=== PATIENT | female | born 1960 | race Caucasian/White ===

== ENCOUNTER 2019-12-21 16:22 | Outpatient (REF) | payer OTHER, SELFPAY ==
--- NOTE | 2019-12-21 16:27 | MM_ITS ---
EXAMINATION: MM SCREENING DIGITAL BREAST TOMOSYNTHESIS, BILATERAL CLINICAL INFORMATION: Screening. Asymptomatic. The lifetime risk of breast cancer based on the Tyrer-Cuzick Model is 10%. COMPARISON: Mammography: 11/07/2018, 6 08/21/2017 TECHNIQUE: Digital breast tomosynthesis is performed in both the craniocaudal and mediolateral oblique views along with computer-aided detection (CAD). Synthesized 2D images are generated from the tomosynthesis. Additional left MLO view is provided. FINDINGS: There are scattered areas of fibroglandular density (ACR BI-RADS breast composition Category b). There are no significant masses, abnormal calcifications, or other abnormalities. No significant changes from prior studies. Skin contours are smooth. MM/MM tomosynthesis screening BI IMPRESSION: No mammographic evidence of malignancy. ASSESSMENT: BI-RADS 1: Negative RECOMMENDATION: Routine annual mammography screening. This patient's information was entered into a reminder system with a target due date for their next mammogram.
== END 2019-12-21 16:23 | disposition home or self-care (01) ==
LOC: HO.MAMMO 16:22
PROVIDERS: PCP Internal Medicine; Visit Provider Internal Medicine
DX: Z12.31 Encounter for screening mammogram for malignant neoplasm of breast (principal)
CPT/HCPCS: 77063; 77067

== ENCOUNTER 2020-01-18 07:54 | Outpatient (REF) | payer OTHER, SELFPAY ==
[2020-01-18 08:39] LABS: MANUAL DIFF FLAG NO
[2020-01-18 08:43] LABS: Basophils Percent Auto 0.2 % (0-2); Eosinophils Absolute Auto 0.2 X10*3/uL (0.0-0.4); Eosinophils Percent Auto 3.2 % (0-4); Hematocrit 43.9 % (37-47); Hemoglobin 14.6 g/dl (12.0-16.0); Imm Gran Abs Auto 0.01 X10*3/uL (0.00-0.03); Imm Gran Pct Auto 0.2 % (0.0-0.4); Lymphocytes Absolute Auto 1.4 X10*3/uL (1.2-4.9); Lymphocytes Percent Auto 26.7 % (20-40); Mean Corpuscular HGB Conc 33.3 g/dl (31.0-35.0); Mean Corpuscular Volume 90.1 fL (80-98); Mean Platelet Volume 9.8 fL (9.4-12.3); Monocytes Absolute Auto 0.3 X10*3/uL (0.1-1.2); Monocytes Percent Auto 5.3 % (2-11); Neutrophils Absolute Auto 3.4 X10*3/uL (2.0-8.3); Neutrophils Percent Auto 64.4 % (45-73); Platelet Count 308 X10*3/uL (160-400); Red Blood Count 4.87 X10*6/uL (4.20-5.50); Red Cell Distribution Width 12.4 % (11.0-16.0); White Blood Count 5.3 X10*3/uL (4.8-10.8)
[2020-01-18 09:02] LABS: Glucose Urine UA NEG (NEG); Leukocyte Esterase Urine NEG (NEG); Nitrite Urine NEG (NEG); PH 7.5 (5.0-8.0); Specific Gravity - Urine 1.015 (1.005-1.025); Urine Blood NEG (NEG); Urine Ketones NEG (NEG); Urine Protein NEG (NEG-TRACE)
[2020-01-18 09:04] LABS: Appearance Urine HAZY; Color Urine YELLOW
[2020-01-18 09:18] LABS: Alanine Aminotransferase 12 U/L (0-31); Albumin Level 4.4 g/dL (3.5-5.0); Alkaline Phosphatase 78 U/L (39-117); Anion Gap 12 (12-20); Aspartate Amino Transferase 16 U/L (5-31); Bilirubin Total 0.6 mg/dL (0.0-1.0); Blood Urea Nitrogen 13 mg/dL (9-16); Calcium 9.5 mg/dL (8.4-10.2); Carbon Dioxide 29 mmol/L (22-29); Chloride 102 mmol/L (96-108); Cholesterol 240 mg/dL; Estimated Glomerular Filt Rate > 60; Glucose Fasting 85 mg/dL (60-99); HDL Cholesterol 55 mg/dL; LDL Cholesterol Calculated 162 mg/dl; Potassium 4.6 mmol/l (3.3-5.1); Sodium 138 mmol/L (135-145); Triglycerides 115 mg/dL
[2020-01-18 09:39] LABS: Thyroid Stimulating Hormone 1.98 uIU/mL (0.32-4.0)
== END 2020-01-18 07:55 | disposition home or self-care (01) ==
LOC: HO.LAB 07:54
PROVIDERS: PCP Internal Medicine; Visit Provider Internal Medicine
DX: E03.9 Hypothyroidism, unspecified (principal); Z00.00 Encounter for general adult medical examination without abnormal findings; R31.1 Benign essential microscopic hematuria
CPT/HCPCS: 36415; 80053; 80061; 81003; 84443; 85025

== ENCOUNTER 2020-07-24 10:22 | Outpatient (REF) | payer OTHER, SELFPAY | END 2020-07-24 10:23 | disposition home or self-care (01) | LOC: HO.LNP 10:22 | PROVIDERS: Visit Provider Internal Medicine | DX: E03.9 Hypothyroidism, unspecified (principal) | CPT/HCPCS: 84443 ==

== ENCOUNTER 2020-12-30 09:02 | Outpatient (REF) | payer OTHER, SELFPAY ==
--- NOTE | ~2020-12-30 | MM_ITS ---
EXAMINATION: MM SCREENING DIGITAL BREAST TOMOSYNTHESIS, BILATERAL CLINICAL INFORMATION: Screening. Asymptomatic. The lifetime risk of breast cancer based on the Tyrer-Cuzick Model is 10%. COMPARISON: Mammography: 12/21/2019, 11/07/2018, 08/21/2017 TECHNIQUE: Digital breast tomosynthesis is performed in both the craniocaudal and mediolateral oblique views along with computer-aided detection (CAD). Synthesized 2D images are generated from the tomosynthesis. Additional left MLO view is provided. FINDINGS: There are scattered areas of fibroglandular density (ACR BI-RADS breast composition Category b). There are no significant masses, abnormal calcifications, or other abnormalities. MM/MM tomosynthesis screening BI IMPRESSION: No mammographic evidence of malignancy. ASSESSMENT: BI-RADS 1: Negative RECOMMENDATION: Routine annual mammography screening. This patient's information was entered into a reminder system with a target due date for their next mammogram.
== END 2020-12-30 09:03 | disposition home or self-care (01) ==
LOC: HO.MAMMO 09:02
PROVIDERS: PCP Internal Medicine; Visit Provider Internal Medicine
DX: Z12.31 Encounter for screening mammogram for malignant neoplasm of breast (principal)
CPT/HCPCS: 77063; 77067

== ENCOUNTER 2021-01-29 10:35 | Outpatient (REF) | payer OTHER, SELFPAY ==
[2021-01-29 10:38] LABS: MANUAL DIFF FLAG NO
[2021-01-29 11:17] LABS: Basophils Percent Auto 0.2 % (0-2); Eosinophils Absolute Auto 0.2 X10*3/uL (0.0-0.4); Eosinophils Percent Auto 3.8 % (0-4); Hematocrit 43.4 % (37.0-47.0); Hemoglobin 13.9 g/dl (12.0-16.0); Imm Gran Abs Auto 0.02 X10*3/uL (0.00-0.03); Imm Gran Pct Auto 0.4 % (0.0-0.4); Lymphocytes Absolute Auto 1.8 X10*3/uL (1.2-4.9); Lymphocytes Percent Auto 32.1 % (20-40); Mean Corpuscular Hemoglobin 29.3 pg (27.0-33.0); Mean Corpuscular Volume 91.6 fL (80.0-98.0); Mean Platelet Volume 10.4 fL (9.4-12.3); Monocytes Absolute Auto 0.3 X10*3/uL (0.1-1.2); Monocytes Percent Auto 5.9 % (2-11); Neutrophils Absolute Auto 3.2 x10*3/uL (2.0-8.3); Neutrophils Percent Auto 57.6 % (45-73); Platelet Count 282 X10*3/uL (160-400); Red Blood Count 4.74 X10*6/uL (4.20-5.50); Red Cell Distribution Width 12.4 % (11.0-16.0); White Blood Count 5.5 X10*3/uL (4.8-10.8)
[2021-01-29 11:43] LABS: Alanine Aminotransferase 19 U/L (0-31); Albumin Level 4.1 g/dL (3.5-5.0); Alkaline Phosphatase 79 U/L (39-117); Anion Gap 10 (12-20); Aspartate Amino Transferase 21 U/L (5-31); Bilirubin Total 0.4 mg/dL (0.0-1.0); Blood Urea Nitrogen 12 mg/dL (9-16); Calcium 9.3 mg/dL (8.4-10.2); Carbon Dioxide 30 mmol/L (22-29); Chloride 105 mmol/L (96-108); Cholesterol 225 mg/dL; Estimated Glomerular Filt Rate > 60; Glucose Fasting 82 mg/dL (60-99); HDL Cholesterol 54 mg/dL; LDL Cholesterol Calculated 158 mg/dl; Potassium 4.3 mmol/L (3.3-5.1); Sodium 141 mmol/L (135-145); Total Protein 6.7 g/dL (6.5-8.0); Triglycerides 66 mg/dL
[2021-01-29 11:55] LABS: TSH reflex Free T4 2.36 uIU/mL (0.32-4.0)
== END 2021-01-29 10:36 | disposition home or self-care (01) ==
LOC: HO.LNP 10:35
PROVIDERS: PCP Internal Medicine; Visit Provider Internal Medicine
DX: Z00.00 Encounter for general adult medical examination without abnormal findings (principal); E03.9 Hypothyroidism, unspecified
CPT/HCPCS: 80053; 80061; 84443; 85025

== ENCOUNTER 2021-08-10 09:31 | Outpatient (REF) | payer OTHER, SELFPAY ==
--- NOTE | ~2021-08-10 | MM_ITS ---
EXAMINATION: BONE DENSITOMETRY CLINICAL INDICATION: Encounter for screening for osteoporosis. COMPARISON: None (current study represents initial baseline exam). TECHNIQUE: Using a Metaresolver DXA System (software version: 13.1) manufactured by [employer], dual-energy x-ray absorptiometry was performed of the lumbar spine and left hip. The images are of good technical quality. Summary results are attached. FINDINGS: AP SPINE L1-L4: BMD 1.218 g/cm2, Z-score 1.3, T-score 0.3, normal. LEFT FEMUR, NECK: BMD 0.875 g/cm2, Z-score -0.1, T-score -1.2, osteopenia. LEFT FEMUR, TOTAL: BMD 0.986 g/cm2, Z-score 0.6, T-score -0.2, normal. IDENTIFIED RISK FACTORS: Secondary osteoporosis, menopause. HISTORY OF FRACTURE: None listed. MEDICATIONS: None listed. MM/XR DEXA axial skeleton IMPRESSION: 1. DIAGNOSIS: Osteopenia based on the lowest T-score value of -1.2 in the femoral neck applying World Health Organization criteria. 2. 10-YEAR FRACTURE RISK PREDICTION, FRAX: Major osteoporotic fracture (clinical spine, forearm, hip or shoulder) 7.7%. Hip fracture 0.5%. 3. Treatment Recommendations: NOF guidelines recommend consideration for treatment in postmenopausal women and men age 50 and older presenting with the following: -A hip or vertebral (clinical or morphometric) fracture. -T-score less than or equal to -2.5 at the femoral neck or spine after appropriate evaluation to exclude secondary causes. -Low bone mass at the hip or spine and a 10-year fracture probability by FRAX of greater than or equal to 3% for hip fracture or greater than or equal to 20% for major osteoporotic fracture based on the [place] adapted WHO algorithm. 4. Other Recommendations: All treatment decisions require clinical judgment and consideration of individual patient factors, including patient preferences, comorbidities, previous drug use, risk factors not captured in the FRAX model (e.g. frailty, falls, vitamin D deficiency, increased bone turnover, interval significant decline in bone density) and possible under or overestimation of fracture risk by FRAX. Additional medical evaluation for secondary cause of low bone mineral density may be appropriate. FUTURE SCAN RECOMMENDATION: People with diagnosed cases of osteoporosis or at high risk for fracture should have regular bone mineral density tests. For patients eligible for Medicare, routine testing is allowed once every 2 years. The testing frequency can be increased to one year for patients who have rapidly progressing disease, those who are receiving or discontinuing medical therapy to restore bone mass, or have additional risk factors.
== END 2021-08-10 09:32 | disposition home or self-care (01) ==
LOC: HO.MAMMO 09:31
PROVIDERS: PCP Internal Medicine; Visit Provider Internal Medicine
DX: Z13.820 Encounter for screening for osteoporosis (principal); Z78.0 Asymptomatic menopausal state
CPT/HCPCS: 77080

== ENCOUNTER → 2021-12-14 13:54 | Outpatient (REF) | payer OTHER, SELFPAY ==
--- NOTE | 2021-12-14 | HM_ITS ---
Conclusion: 1. Patient was monitored for total period of 3 days and 1 hour 2. Baseline was normal sinus rhythm with average heart of 70 beats per minute 3. No significant pauses or bradycardia noted 4. Total of 1676 PACs accounting for 1.1% of total beats account for frequent PACs 5. Frequent short burst of SVTs consistent with either paroxysmal atrial tachycardia or SVT with the fastest 190 beats per minute 6. Two episodes of 3 beat salvos of nonsustained VT at 194 beats per minute 7. Occasional PVCs noted 8. Patient reported symptoms correlated with PACs and PVCs MTDD
== END ==
LOC: HO.CARD 13:54
PROVIDERS: Visit Provider Internal Medicine
DX: R00.2 Palpitations (principal)
CPT/HCPCS: 93242

== ENCOUNTER 2022-01-14 16:10 | Outpatient (REF) | payer OTHER, SELFPAY ==
[2022-01-14 17:08] LABS: TSH reflex Free T4 1.38 uIU/mL (0.32-4.0)
== END 2022-01-14 16:11 | disposition home or self-care (01) ==
LOC: HO.LNP 16:10
PROVIDERS: Visit Provider Internal Medicine
DX: E03.9 Hypothyroidism, unspecified (principal)
CPT/HCPCS: 84443

== ENCOUNTER 2022-01-29 12:54 | Outpatient (REF) | payer OTHER, SELFPAY ==
--- NOTE | ~2022-01-29 | MM_ITS ---
EXAMINATION: MM SCREENING DIGITAL BREAST TOMOSYNTHESIS, BILATERAL CLINICAL INFORMATION: Screening. Asymptomatic. The lifetime risk of breast cancer based on the Tyrer-Cuzick Model is 10.4%. COMPARISON: Mammography: December 30, 2020 and studies dating back to April 10, 2013 TECHNIQUE: Digital breast tomosynthesis is performed in both the craniocaudal and mediolateral oblique views along with computer-aided detection (CAD). Synthesized 2D images are generated from the tomosynthesis. FINDINGS: There are scattered areas of fibroglandular density (ACR BI-RADS breast composition Category b). There are no significant masses, abnormal calcifications, or other abnormalities. MM/MM tomosynthesis screening BI IMPRESSION: No significant changes from prior exam. ASSESSMENT: BI-RADS 1: Negative RECOMMENDATION: Routine annual mammography screening. This patient's information was entered into a reminder system with a target due date for their next mammogram.
== END 2022-01-29 12:55 | disposition home or self-care (01) ==
LOC: HO.MAMMO 12:54
PROVIDERS: Visit Provider Internal Medicine
DX: Z12.31 Encounter for screening mammogram for malignant neoplasm of breast (principal)
CPT/HCPCS: 77063; 77067

== ENCOUNTER 2022-04-02 11:20 | Outpatient (REF) | payer OTHER, SELFPAY ==
[2022-04-02 11:27] LABS: MANUAL DIFF FLAG NO
[2022-04-02 11:53] LABS: Basophils Percent Auto 0.4 % (0-2); Eosinophils Absolute Auto 0.4 X10*3/uL (0.0-0.4); Eosinophils Percent Auto 6.5 % (0-4); Hematocrit 44.6 % (37.0-47.0); Hemoglobin 14.6 g/dl (12.0-16.0); Imm Gran Abs Auto 0.01 X10*3/uL (0.00-0.03); Imm Gran Pct Auto 0.2 % (0.0-0.4); Lymphocytes Absolute Auto 1.3 X10*3/uL (1.2-4.9); Lymphocytes Percent Auto 22.1 % (20-40); Mean Corpuscular HGB Conc 32.7 g/dl (31.0-35.0); Mean Corpuscular Hemoglobin 29.7 pg (27.0-33.0); Mean Corpuscular Volume 90.7 fL (80.0-98.0); Mean Platelet Volume 10.4 fL (9.4-12.3); Monocytes Absolute Auto 0.4 X10*3/uL (0.1-1.2); Monocytes Percent Auto 6.3 % (2-11); Neutrophils Absolute Auto 3.7 x10*3/uL (2.0-8.3); Neutrophils Percent Auto 64.5 % (45-73); Platelet Count 272 X10*3/uL (160-400); Red Blood Count 4.92 X10*6/uL (4.20-5.50); Red Cell Distribution Width 12.4 % (11.0-16.0); White Blood Count 5.7 X10*3/uL (4.8-10.8)
[2022-04-02 11:58] LABS: Appearance Urine Clear; Color Urine Yellow; Glucose Urine UA Negative (Negative); Leukocyte Esterase Urine Trace (Negative); Nitrite Urine Negative (Negative); PH 5.5 (5.0-9.0); Specific Gravity - Urine 1.015 (1.005-1.025); UMIC TRIGGER UACC YES; Urine Blood Negative (Negative); Urine Ketones Negative (Negative); Urine Protein Negative (Neg-Trace)
[2022-04-02 12:04] LABS: Bacteria Urine None Seen (None Seen); Hyaline Casts Urine 0-2 /LPF (0-2); RBC Urine 0-2 /HPF (0-2); Squamous Epithelial Cell Urine 0-2 /HPF (0-2); WBC Urine 0-5 /HPF (0-5)
[2022-04-02 12:27] LABS: Alanine Aminotransferase 16 U/L (0-31); Albumin Level 4.2 g/dL (3.5-5.0); Alkaline Phosphatase 72 U/L (39-117); Anion Gap 12 (12-20); Aspartate Amino Transferase 19 U/L (5-31); Bilirubin Total 0.8 mg/dL (0.0-1.0); Blood Urea Nitrogen 11 mg/dL (9-16); Calcium 9.4 mg/dL (8.4-10.2); Carbon Dioxide 29 mmol/L (22-29); Chloride 104 mmol/L (96-108); Cholesterol 241 mg/dL; Estimated Glomerular Filt Rate > 60; Glucose Fasting 88 mg/dL (60-99); HDL Cholesterol 56 mg/dL; LDL Cholesterol Calculated 170 mg/dl; Potassium 4.5 mmol/L (3.3-5.1); Sodium 140 mmol/L (135-145); Total Protein 6.5 g/dL (6.5-8.0); Triglycerides 79 mg/dL
[2022-04-02 12:41] LABS: TSH reflex Free T4 1.73 uIU/mL (0.32-4.0)
== END 2022-04-02 11:21 | disposition home or self-care (01) ==
LOC: HO.LNP 11:20
PROVIDERS: Visit Provider Internal Medicine
DX: Z00.00 Encounter for general adult medical examination without abnormal findings (principal); E03.9 Hypothyroidism, unspecified
CPT/HCPCS: 80053; 80061; 81001; 84443; 85025

== ENCOUNTER 2023-02-14 08:33 | Outpatient (REF) | payer OTHER, SELFPAY ==
--- NOTE | ~2023-02-14 | MM_ITS ---
EXAMINATION: MM SCREENING DIGITAL BREAST TOMOSYNTHESIS, BILATERAL CLINICAL INFORMATION: Screening. Asymptomatic. COMPARISON: Mammography: 01/29/2022, 12/30/2020, 12/21/2019, 11/07/2018, 08/21/2017 TECHNIQUE: Digital breast tomosynthesis is performed in both the craniocaudal and mediolateral oblique views along with computer-aided detection (CAD). Synthesized 2D images are generated from the tomosynthesis. FINDINGS: There are scattered areas of fibroglandular density (ACR BI-RADS breast composition Category b). There are no suspicious masses, suspicious grouped calcifications, or areas of architectural distortion in either breast. The parenchymal pattern is stable from prior exams. No axillary or skin changes. MM/MM tomosynthesis screening BI IMPRESSION: No mammographic evidence of malignancy. ASSESSMENT: BI-RADS BI-RADS 1 - Negative RECOMMENDATION: Routine annual mammography screening. 1 year F/U This examination should not preclude the clinical evaluation of a suspicious palpable abnormality. This patient's information was entered into a reminder system with a target due date for their next mammogram.
== END 2023-02-14 08:34 | disposition home or self-care (01) ==
LOC: HO.MAMMO 08:33
PROVIDERS: PCP Internal Medicine; Visit Provider Internal Medicine
DX: Z12.31 Encounter for screening mammogram for malignant neoplasm of breast (principal)
CPT/HCPCS: 77063; 77067

== ENCOUNTER → 2023-02-14 08:45 | Outpatient (BNV) | payer OTHER, SELFPAY | PROVIDERS: PCP Internal Medicine; Visit Provider Radiology Diagnostic Radiology | DX: Z12.31 Encounter for screening mammogram for malignant neoplasm of breast (principal) | CPT/HCPCS: 77063; 77067 ==

== ENCOUNTER 2023-04-18 11:34 | Outpatient (REF) | payer OTHER, SELFPAY ==
[2023-04-18 11:36] LABS: MANUAL DIFF FLAG NO
[2023-04-18 12:05] LABS: Basophils Percent Auto 0.2 % (0-2); Eosinophils Absolute Auto 0.2 X10*3/uL (0.0-0.4); Eosinophils Percent Auto 4.5 % (0-4); Hematocrit 42.7 % (37.0-47.0); Imm Gran Abs Auto 0.02 X10*3/uL (0.00-0.03); Imm Gran Pct Auto 0.4 % (0.0-0.4); Lymphocytes Absolute Auto 1.7 X10*3/uL (1.2-4.9); Lymphocytes Percent Auto 33.8 % (20-40); Mean Corpuscular HGB Conc 32.8 g/dl (31.0-35.0); Mean Corpuscular Hemoglobin 29.6 pg (27.0-33.0); Mean Corpuscular Volume 90.3 fL (80.0-98.0); Mean Platelet Volume 10.5 fL (9.4-12.3); Monocytes Absolute Auto 0.3 X10*3/uL (0.1-1.2); Monocytes Percent Auto 6.1 % (2-11); Neutrophils Absolute Auto 2.7 x10*3/uL (2.0-8.3); Platelet Count 295 X10*3/uL (160-400); Red Blood Count 4.73 X10*6/uL (4.20-5.50); Red Cell Distribution Width 12.6 % (11.0-16.0); White Blood Count 4.9 X10*3/uL (4.8-10.8)
[2023-04-18 12:55] LABS: Alanine Aminotransferase 14 U/L (0-31); Alkaline Phosphatase 76 U/L (39-117); Anion Gap 10 (12-20); Aspartate Amino Transferase 20 U/L (5-31); Bilirubin Total 0.4 mg/dL (0.0-1.0); Blood Urea Nitrogen 14 mg/dL (9-16); Calcium 9.1 mg/dL (8.4-10.2); Carbon Dioxide 29 mmol/L (22-29); Chloride 105 mmol/L (96-108); Cholesterol 225 mg/dL (<200); Estimated Glomerular Filt Rate > 60; Glucose Fasting 84 mg/dL (60-99); HDL Cholesterol 50 mg/dL (>40); LDL Cholesterol Calculated 157 mg/dL (<100); Potassium 4.3 mmol/L (3.3-5.1); Sodium 140 mmol/L (135-145); Total Protein 6.7 g/dL (6.5-8.0); Triglycerides 93 mg/dL (<150)
== END 2023-04-18 11:35 | disposition home or self-care (01) ==
LOC: HO.LNP 11:34
PROVIDERS: Visit Provider Internal Medicine
DX: Z00.00 Encounter for general adult medical examination without abnormal findings (principal); E03.9 Hypothyroidism, unspecified
CPT/HCPCS: 80053; 80061; 84443; 85025

== ENCOUNTER 2023-04-21 13:25 | Outpatient (REF) | payer OTHER, SELFPAY ==
[2023-04-21 14:23] LABS: Appearance Urine Clear; Color Urine Yellow; Glucose Urine UA Negative (Negative); Leukocyte Esterase Urine Small (1+) (Negative); Nitrite Urine Negative (Negative); UMIC TRIGGER UACC YES; Urine Blood Negative (Negative); Urine Ketones Negative (Negative); Urine Protein Negative (Neg-Trace)
[2023-04-21 14:35] LABS: Bacteria Urine None Seen (None Seen); Hyaline Casts Urine 0-2 /LPF (0-2); RBC Urine 0-2 /HPF (0-2); Squamous Epithelial Cell Urine 0-2 /HPF (0-2); UACC Culture Trigger YES; WBC Urine 0-5 /HPF (0-5)
== END 2023-04-21 13:26 | disposition home or self-care (01) ==
LOC: HO.LNP 13:25
PROVIDERS: Visit Provider Internal Medicine
DX: E03.9 Hypothyroidism, unspecified (principal); R82.90 Unspecified abnormal findings in urine
CPT/HCPCS: 81001; 87086

== ENCOUNTER 2024-02-20 08:13 | Outpatient (REF) | payer OTHER, SELFPAY | END 2024-02-20 08:14 | disposition home or self-care (01) | LOC: HO.MAMMO 08:13 | PROVIDERS: PCP Internal Medicine; Visit Provider Internal Medicine | DX: Z12.31 Encounter for screening mammogram for malignant neoplasm of breast (principal) | CPT/HCPCS: 77063; 77067 ==

== ENCOUNTER → 2024-02-20 08:30 | Outpatient (BNV) | payer OTHER, SELFPAY | PROVIDERS: PCP Internal Medicine; Visit Provider Internal Medicine | DX: Z12.31 Encounter for screening mammogram for malignant neoplasm of breast (principal) | CPT/HCPCS: 77063; 77067 ==

== ENCOUNTER 2024-04-20 10:12 | Outpatient (REF) | payer OTHER, SELFPAY ==
[2024-04-20 10:15] LABS: MANUAL DIFF FLAG NO
[2024-04-20 10:55] LABS: Basophils Percent Auto 0.2 % (0-2); Eosinophils Absolute Auto 0.2 X10*3/uL (0.0-0.4); Eosinophils Percent Auto 3.6 % (0-4); Hematocrit 42.3 % (37.0-47.0); Imm Gran Abs Auto 0.01 X10*3/uL (0.00-0.03); Imm Gran Pct Auto 0.2 % (0.0-0.4); Lymphocytes Absolute Auto 1.6 X10*3/uL (1.2-4.9); Lymphocytes Percent Auto 33.8 % (20-40); Mean Corpuscular HGB Conc 33.1 g/dl (31.0-35.0); Mean Corpuscular Hemoglobin 29.8 pg (27.0-33.0); Mean Platelet Volume 10.4 fL (9.4-12.3); Monocytes Absolute Auto 0.3 X10*3/uL (0.1-1.2); Monocytes Percent Auto 5.9 % (2-11); Neutrophils Absolute Auto 2.7 x10*3/uL (2.0-8.3); Neutrophils Percent Auto 56.3 % (45-73); Platelet Count 284 X10*3/uL (160-400); Red Cell Distribution Width 12.7 % (11.0-16.0); White Blood Count 4.7 X10*3/uL (4.8-10.8)
[2024-04-20 11:22] LABS: Alanine Aminotransferase 18 U/L (0-31); Alkaline Phosphatase 69 U/L (39-117); Anion Gap 9 (12-20); Aspartate Amino Transferase 22 U/L (5-31); Bilirubin Total 0.6 mg/dL (0.0-1.0); Blood Urea Nitrogen 11 mg/dL (9-16); Calcium 8.9 mg/dL (8.4-10.2); Carbon Dioxide 28 mmol/L (22-29); Chloride 107 mmol/L (96-108); Cholesterol 218 mg/dL (<200); Estimated Glomerular Filt Rate > 60; Glucose Fasting 86 mg/dL (60-99); HDL Cholesterol 47 mg/dL (>40); LDL Cholesterol Calculated 151 mg/dL (<100); Potassium 4.2 mmol/L (3.3-5.1); Sodium 140 mmol/L (135-145); Triglycerides 103 mg/dL (<150)
[2024-04-20 11:29] LABS: TSH reflex Free T4 5.22 uIU/mL (0.32-4.0)
--- OUTSIDE RECORDS SUMMARY | 2024-04-20 11:59 | XMS_ITS ---
Author Organization Rickey Real MD Address [address] [place], [place] [phone] Care Team Providers Care Furnace Process Plant Operator Name Role Phone Rickey Real Primary Care Provider Allergies Allergen (clinical drug ingredient) Drug/Non Drug Allergy documented on EMR Reaction Allergy Type Onset Date Status metronidazole Metronidazole N palpitations Drug Allergy Active Results Component Value Reference Range Notes Electrocardiogram (EKG) Reviewed date:08/12/2023 01:32:18 PM Interpretation: Performing Lab: Notes/Report: REASON FOR VISIT palpitations not sleeping Medications Medication SIG (Take, Route, Frequency, Duration) Notes Start Date End Date Status Levothyroxine Sodium 88 MCG TAKE 1 TABLE T BY MOUTH EVERY DAY IN THE MORNING ON EMPTY STOMACH for 90 Active Zoloft 50 MG 0.5tablet Orally Onc e a day Active Omeprazole 20 MG 1 capsule 30 minutes before morning meal Orally Once a day for 30 day(s) 08/12/2023 Active Problems Problem Type SNOMED Code ICD Code Onset Dates Problem Status W/U Status Risk Notes Problem [id number] Gastroesophageal reflux disease without esophagitis (K21.9) Active confirmed Vital Signs Blood pressure systolic 132 mm Hg 08/12/19 24 Blood pressure diastolic 78 mm Hg 024 Height 65.5 in 08/12/2023 Weight 173 lbs 08/12/2023 BMI 28.35 kg/m2 08/12/2023 Encounters Encounter Location Date Provider Diagnosis Rickey Real MD [address] [place] [address] [place] [phone] 08/12/2023 Rickey Real Palpitations R00.2 a nd Gastroesophageal reflux disease without esophagitis K21.9 Assessments Encounter Date Diagnosis (ICD Code) Assessment Notes Treatment Notes Treatment Clinical Notes Section Notes 08/12/2023 Palpitations (ICD-10 - R00.2) sounds as though not the same as her palpitations 08/12/2023 Gastroesophageal reflux disease without esophagitis (ICD-10 - K21.9) possibly related to some spasm in esophagus Plan Of Treatment Medication Medication Name Sig Start Date Stop Date Notes Omeprazole 20 MG 1 capsule 30 minutes before morning meal Orally Once a day for 30 day(s) 08/12/2023 Treatment Notes Assessment Notes Palpitations sounds as though not the same as her palpitations Gastroesophageal reflux dise ase without esophagitis possibly related to some spasm in esophagus Next Appt Details Follow Up: 4 Weeks, Reason: Provider Name:Rickey Connelly ier, 04/29/2024 08:30:00 AM, [address] [place] [address], Suite [facility], [place], [place], [phone], Progress Notes * Hilda ARMSTRONG MDOB:[birth year] (63 yo F)Acc No.[id number]:08/12/2023 Progress Notes Patient:?Hilda Armstrong Provider:?Rickey Real MD :1960???Age:63 Y???Sex:Female D ate:08/12/2023 [facility] Subjective: * Chief Complaints: * ???Palpitations not sleeping * HPI: ???Symptom(s):? patient is a 63 yo female here with compaint of palpitations, not sleeping well, starting 6 days ago heart racing at night and keeping her awake. no pain no shortness of breath. would get a 10 seconds of the palpitations that start at xiphoid and goes up to lwer neck/ not actual palpations like last year and has been burping more. * ROS:?General/Constitutional:?Denies?Chills.?Denies?Fatigue.?Denies?Fever.?Denies?Headache.?ENT:?Patient denies?decreased sense of smell , any loss of taste , sore throat.?Denies?Sore throat.?Respiratory:?Denies?Cough.?Denies?Shortness of breath at rest.?Denies?Shortness of breath with exertion.?Cardiovascular:?Denies?Chest pain at rest.?Denies?Chest pain with exertion.?Denies?Dizziness.?Admits?Palpitations,?Especially when in bed.?Denies?Shortness of breath.?Gastrointestinal:?Denies?Diarrhea.?Denies?Nausea.?Musculoskeletal:?Patient denies?muscle aches.?Peripheral Vascular:?Patient denies?red and blue toes.? * Medical History:? * Surgical History:? * Hospitalization/Major Diagno stic Procedure:? * Medications:?TakingZoloft 50 MG Tablet 0.5tablet Orally Once a dayLevothyroxine Sodium 88 MCG Tablet TAKE 1 TABLET BY MOUTH EVERY DAY IN THE MORNING ON EMPTY STOMACH Medication List reviewed and reconciled with the patientTaking Zoloft 50 MG Tablet 0.5tablet Orally Once a dayTaking Levothyroxine Sodium 88 MCG Tablet TAKE 1 TABLET BY MOUTH EVERY DAY IN THE MORNING ON EMPTY STOMACH Medication List reviewed and reconciled with the patient * Allergies:?Metronidazole: N palpitationsyes[Allergies Verified] Objective: * Vitals:?Ht: 65.5, Wt:173, BM I:28.35, BP:132/78. Assessment: * Assessment: 1.?Palpitations - R00.2 (Zoe marley)?2.?Gastroesophageal reflux disease without esophagitis - K21.9? Plan: * Treatment: * Notes: sounds as though not the same as her palpitations.??2.?Gastroesophageal reflux disease without esophagitis? Start Omeprazole Capsule Delayed Release, 20 MG, 1 capsule 30 minutes before morning meal, Orally, Once a day, 30 day(s), 30, Refills 4.?? Notes: possibly related to some spasm in esophagus.?? * Procedure Codes:?94046 -ELEC TROCARDIOGRAM, COMPLETE * Follow Up:?4 Weeks * * Sign off status: Completed true * Provider:?Rickey Real MD Date:?0 08/12/2023 Generated for Maile bryan/Juan/Ricoitting on:?04/20/2024 11:59 AM EDT History and Physical Notes * HPI (History of Present Illness) Category Sub-Category Detail Notes Category Not es Symptom(s) patient is a 63 yo female here with compaint of palpitations, not sleeping well, starting 6 days ago heart racing at night and keeping her awake. no pain no shortness of breath. would get a 10 seconds of the palpitations that start at xiphoid and goes up to lwer neck/ not actual palpations like last year and has been burping more
--- OUTSIDE RECORDS SUMMARY | 2024-04-20 11:59 | XMS_ITS ---
Author Organization Rickey Real MD Address [address] [place] [id number] Care Team Providers Care Flare Maker Name Role Phone Rickey Real Primary Care Provider Allergies Allergen (clinical drug ingredient) Drug/Non Drug Allergy documented on EMR Reaction Allergy Type Onset Date Status metronidazole Metronidazole N palpitations Drug Allergy Active REASON FOR VISIT 4 week Medications Medication SIG (Take, Route, Frequency, Duration) Notes Start Date End Date Status Levothyroxine Sodium 88 MCG TAKE 1 TABLE T BY MOUTH EVERY DAY IN THE MORNING ON EMPTY STOMACH for 90 Active Omeprazole 20 MG 1 capsule 30 minutes before morning meal Orally Once a day 08/12/2023 Active Zoloft 50 MG 0.5tablet Orally Onc e a day Active Vital Signs Blood pressure systolic 144 mm Hg 09/11/19 24 Blood pressure diastolic 70 mm Hg 024 Height 65.5 in 09/11/2023 Weight 173 lbs 09/11/2023 BMI 28.35 kg/m2 09/11/2023 Encounters Encounter Location Date Provider Diagnosis Rickey Real MD [address] [place] [id number] 09/11/2023 Rickey Real Gastroesophageal ref lux disease without esophagitis K21.9 Assessments Encounter Date Diagnosis (ICD Code) Assessment Notes Treatment Notes Treatment Clinical Notes Section Notes 09/11/2023 Gastroesophageal reflux disease without esophagitis (ICD-10 - K21.9) doing great. will get upper endoscopy when she gets colonoscopy Plan Of Treatment Medication Medication Name Sig Start Date Stop Date Notes Omeprazole 20 MG 1 capsule 30 minutes before morning meal Orally Once a day 08/12/2023 Treatment Notes Assessment Notes Gastroesophageal reflux dise ase without esophagitis doing great. will get upper endoscopy when she gets colonoscopy Next Appt Details Provider Name:Rickey Millerwilder ier, 04/29/2024 08:30:00 AM, [address] [facility], [address], [place], [phone], Progress Notes * Hilda ARMSTRONG MDOB:[birth year] (63 yo F)Acc No.[id number]:09/11/2023 Progress Notes Patient:?Hilda Armstrong Provider:?Rickey Real MD :1960???Age:63 Y???Sex:Female D ate:09/11/2023 Address: [address] [place] Subjective: * Chief Complaints: * ???4 week * HPI: ???Symptom(s):? patient is a 63 yo female doing much better since the taking the first omeprazole. * ROS:?General/Constitutional:?Denies?Chills.?Denies?Fatigue.?Denies?Fever.?Denies?Headache.?ENT:?Patient denies?decreased sense of smell , any loss of taste , sore throat.?Denies?Sore throat.?Respiratory:?Denies?Chest pain.?Denies?Shortness of breath at rest.?Denies?Shortness of breath with exertion.?Gastrointestinal:?Denies?Abdominal pain.?Denies?Diarrhea.?Denies?Heartburn.?Denies?Nausea.?Musculoskeletal:?Patient denies?muscle aches.?Peripheral Vascular:?Patient denies?red and blue toes.? * Medical History:? * Surgical History:? * Hospitalization/Major Diagno stic Procedure:? * Medications:?TakingZoloft 50 MG Tablet 0.5tablet Orally Once a dayLevothyroxine Sodium 88 MCG Tablet TAKE 1 TABLET BY MOUTH EVERY DAY IN THE MORNING ON EMPTY STOMACH Omeprazole 20 MG Capsule Delayed Release 1 capsule 30 minutes before morning meal Orally Once a dayTaking Zoloft 50 MG Tablet 0.5tablet Orally Once a dayTaking Levothyroxine Sodium 88 MCG Tablet TAKE 1 TABLET BY MOUTH EVERY DAY IN THE MORNING ON EMPTY STOMACH Taking Omeprazole 20 MG Capsule Delayed Release 1 capsule 30 minutes before morning meal Orally Once a day * Allergies:?Metronidazole: N palpitationsyes[Allergies Verified] Objective: * Vitals:?Ht: 65.5, Wt:173, BM I:28.35, BP:144/70, Repeat BP:120/70. * Examination: ???General Examination: ?GENERAL APPEARANCE:? alert, well hydrated, in no distress , female.?HEAD:? normocephalic.?HEART:? no murmurs, rubs, gallops, regular rate and rhythm.?LUNGS:? no wheezes, rales, rhonchi, good air movement, clear to auscultation bilaterally.? Assessment: * Assessment: 1.?Gastroesophageal reflux d isease without esophagitis - K21.9 (Primary)? Plan: * Treatment: * Procedure Codes:? * * Sign off status: Completed true * Provider:?Rickey Real MD Date:?0 09/11/2023 Generated for Maile bryan/Juan/Ricoitting on:?04/20/2024 11:59 AM EDT History and Physical Notes * HPI (History of Present Illness) Category Sub-Category Detail Notes Category Not es Symptom(s) patient is a 63 yo female doing much better since the taking the first omeprazole Examination Category Sub-Category Detail Notes Category Not es General Examination GENERAL APPEARANCE: alert, w ell hydrated, in no distress , female HEAD: normocephalic HEART: no murmurs, rubs, ga llops, regular rate and rhythm LUNGS: no wheezes, rales, r honchi, good air movement, clear to auscultation bilaterally
--- OUTSIDE RECORDS SUMMARY | 2024-04-20 11:59 | XMS_ITS | Clinical Summary ---
Author Organization [facility] Address [address] [place] [address] Phone Care Team Providers Care Cashier Clerk Name Role Phone Ly Calderón MD Primary Care Provider [phone] Allergies No known active allergies Medications amoxicillin (AMOXIL) 500 mg tablet 1 TABLET EVERY 8 HOURS 05/21/2006 Active levothyroxine (LevoxyL) 88 mcg tablet 1 TABLET DAILY Active sertraline (Zoloft) 25 mg tablet 1 qd Active Active Problems Problem Noted Date Diagnosed Date Acute maxillary sinusitis 05/21/2006 Generalized anxiety disorder 11/13/2005 Hypothyroidism 11/13/2005 Overview (02/10/2024): 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, 2001 Medical History Medical History Date Comments Unspecified hypothyroidism 11/13/2005 DX:Un specified hypothyroidism; COMMENT: 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, 2001 Generalized anxiety disorder 11/13/2005 DX: Generalized anxiety disorder Family History Medical History Relation Name Comments Other: arthritis Father Hypertension Mother Relation Name Status Comments Father Mother Social History Tobacco Use Types Packs/Day Years Used Date Smoking Tobacco: Never Alcohol Use Standard Drinks/Week Comments No 0 (1 standard drink = 0.6 oz pur e alcohol) Comments Unknown Sex and Gender Information Value Date Recorded Sex Assigned at Not on file Legal Sex Female 2:10 AM EST Gender Identity Not on file Sexual Orientation Not on file Obstetrics History Plan of Treatment Health Maintenance Due Date Last Done Comments Breast Cancer Screening 1960 DTaP,Tdap,and Td Vaccines (1 - Tdap) 01/15/1979 Cervical Cancer Screening: P ap Smear 01/15/1981 Pneumococcal Vaccine: 50+ Ye ars (1 of 1 - PCV) 01/15/2010 Zoster Vaccines (1 of 2) 01/15/2010 COVID-19 Vaccine (1 - 2023-2 5 season) 2023 Influenza Vaccine (#1) 2023 Colorectal Cancer Screening: Colonoscopy 02/10/2024 Depression Screening 02/10/2024 HIV Screening 02/10/2024 Hepatitis C Screening 02/10/2024 Social Influencers of Health Screening 02/10/2024 RSV Immunization Patients 60 + Years Old (1 - 1-dose 75+ series) 01/15/2035 HIB Vaccines Aged Out No longer eligi ble based on patient's age to complete this topic HPV Vaccines Aged Out No longer eligi ble based on patient's age to complete this topic Hepatitis A Vaccines Aged Out No long er eligible based on patient's age to complete this topic Hepatitis B Vaccines Aged Out No long er eligible based on patient's age to complete this topic IPV Vaccines Aged Out No longer eligi ble based on patient's age to complete this topic MMR Vaccines Aged Out No longer eligi ble based on patient's age to complete this topic Meningococcal ACWY Vaccine Aged Out N o longer eligible based on patient's age to complete this topic Meningococcal B Vacine Aged Out No lo nger eligible based on patient's age to complete this topic Pneumococcal Vaccine: Pediat rics (0 to 5 Years) and At-Risk Patients (6 to 64 Years) Aged Out No longer eligible b ased on patient's age to complete this topic RSV Immunization Patients Un aminata 20 months Aged Out No longer eligible b ased on patient's age to complete this topic Varicella Vaccines Aged Out No longer eligible based on patient's age to complete this topic Care Teams Cashier Clerk Relationship Specialty Start Date End Date Ly Calderón MD [address] [place] [address] PCP - General 11/08/05
--- OUTSIDE RECORDS SUMMARY | 2024-04-20 11:59 | XMS_ITS | Patient Health Record ---
Author Organization Rickey Real MD Address [address] [place], [place] [id number] Care Team Providers Care Surgical Rn Name Role Phone Rickey Real Primary Care Provider [phone] Allergies Allergen (clinical drug ingredient) Drug/Non Drug Allergy documented on EMR Reaction Allergy Type Onset Date Status metronidazole Metronidazole N palpitations Drug Allergy Active Results Component Value Reference Range Notes UA ClnCatch+Micro w/rflx Cul t Reviewed date:04/21/2023 04:29:27 PM Interpretation: Performing Lab:[facility], [address] [place] [phone] Notes/Report: Urine, Clean Catch Color Urine Yellow Appearance Urine Clear PH 7.0 5.0-9.0 Glucose Urine UA Negative Negative mg/dL Urine Blood Negative Negative Specific [place] - Urine 1.010 1.005-1.025 Urine Protein Negative Neg-Trace mg/dL Urine Ketones Negative Negative mg/dL Nitrite Urine Negative Negative Leukocyte Esterase Urine Small (1+) Negative RBC Urine 0-2 0-2 /HPF WBC Urine 0-5 0-5 /HPF Squamous Epithelial Cell Urine 0-2 0-2 /HPF Bacteria Urine None Seen None Seen Hyaline Casts Urine 0-2 0-2 /LPF Complete Blood Count Auto Di ff (Not yet reviewed by provider) Interpretation: Performing Lab:[facility], [address] [place] [phone] Notes/Report: White Blood Count 4.7 4.8-10.8 X10*3/uL [...] NRBC Abs Auto 0.000 0.0-0.012 X10*3/uL Comprehensive [facility]. Panel Fa st (Not yet reviewed by provider) Interpretation: Performing Lab:[facility], [address] [place] [phone] Notes/Report: Sodium 140 135-145 mmol/L Potassium 4.2 [...] Alkaline Phosphatase 69 39-117 U/L Lipid Panel (Not yet reviewe d by provider) Interpretation: Performing Lab:[address] [phone] Notes/Report: Triglycerides 103 <150 mg/dL Desirable Triglyceride: [...] with liver disease. TSH reflex Free T4 (Not yet reviewed by provider) Interpretation: Performing Lab:[address] [phone] Notes/Report: TSH reflex Free T4 5.22 0.32-4.0 uIU/mL Electrocardiogram (EKG) Reviewed date:08/12/2023 01:32:18 PM Interpretation: Performing Lab: Notes/Report: Urine Culture Reviewed date:04/22/2023 12:11:48 PM Interpretation: Performing Lab:[facility], [address] [facility], [place] [address] Notes/Report: Urine Culture Report Result Urine Culture 50,000 to 100,000 cfu/ml Urine Culture Mixed bacterial keshia a characteristic of Urine Culture urogenital contamination. MM tomosynthesis screening B I Reviewed date:02/27/2024 06:02:17 PM Interpretation: Performing Lab: Notes/Report: [facility] [address] [place] [address] Mammography Report Signed Patient: Hilda Armstrong MR#: [id number] : 1960 Acct:[id number] Age/Sex: 64 / F ADM Date: 02/20/24 Loc: HO.MAMMO Attending Dr: Rickey Real MD Ordering Physician: Rickey Real MD Results: 1Ne gative Date of Service: 02/20/24 Follow Up: 1 Year From Orig ina Mammogram Procedure(s): MM tomosynthesis screening BI Accession Number(s): [id number] cc: Rickey Real MD EXAMINATION: MM SCREENING DIGITAL BREAST TOMOSYNTHESIS, BILATERAL CLINICAL INFORMATION: Screening. Asymptomatic. COMPARISON: Mammography: Comparison is made with available priors TECHNIQUE: Digital breast mammography with tomosynthesis is performed in both the craniocaudal and mediolateral oblique views along with computer-aided detection (CAD). FINDINGS: There are scattered areas of fibroglandular density (ACR BI-RADS breast composition Category b). There are no significant masses, abnormal calcifications, or other abnormalities. MM/MM tomosynthesis screening BI IMPRESSION: No mammographic evidence of malignancy. ASSESSMENT: BI-RADS BI-RADS 1 - Negative RECOMMENDATION: Routine annual mammography screening. 1 year F/U This examination should not preclude the clinical evaluation of a suspicious palpable abnormality. This patient's information was entered into a reminder system with a target due date for their next mammogram. Electronically signed by: Georgie Hinds DO 02/27/2024 11:57 AM [facility] Dictated By: Georgie Hinds DO Signed By: <Electronically signed by Georgie Hinds DO in OV> 02/27/247 DD/ 9 TD/TT: 02/20/24844 Drilling And Production Superintendent: [facility] [address] [place] [address] Mammography Report Signed Patient: Soraida Armstrong MR#: [id number] : 1960 Acct:[id number] Age/Sex: 64 / F ADM Date: 02/20/24 Loc: HO.MAMMO Attending Dr: Rickey Real MD Ordering Physician: Rickey Real MD Results: 1Ne gative Date of Service: 02/20/24 Follow Up: 1 Year From Orig inal Mammogram Procedure(s): MM tomosynthesis screening BI Accession Number(s): [id number] cc: Rickey Real MD EXAMINATION: MM SCREENING DIGITAL BREAST TOMOSYNTHESIS, BILATERAL CLINICAL INFORMATION: Screening. Asymptomatic. COMPARISON: Mammography: Comparison is made with available priors TECHNIQUE: Digital breast mammography with tomosynthesis is performed in both the craniocaudal and mediolateral oblique views along with computer-aided detection (CAD). FINDINGS: There are scattered areas of fibroglandular density (ACR BI-RADS breast composition Category b). There are no significant masses, abnormal calcifications, or other abnormalities. MM/MM tomosynthesis screening BI IMPRESSION: No mammographic evidence of malignancy. ASSESSMENT: BI-RADS BI-RADS 1 - Negative RECOMMENDATION: Routine annual mammography screening. 1 year F/U This examination should not preclude the clinical evaluation of a suspicious palpable abnormality. This patient's information was entered into a reminder system with a target due date for their next mammogram. Electronically prabhu d by: Georgie Hinds DO 02/27/2024 11:57 AM EST Dictated By: Georgie Hinds DO Signed By: <Electronically signed by Georgie Hinds DO in OV> 02/27/24 1157 DD/ 9 TD/TT: 02/20/24844 Drilling And Production Superintendent: Sourav Liu (Not yet reviewed by provider) Interpretation: Performing Lab:[facility], [address] [place] [phone] Notes/Report: Hold Gold See Note Specimen held untested for 24 hours; Call to request Chemistry testing. Reason For Referral No Information Medications Medication SIG (Take, Route, Frequency, Duration) Notes Start Date End Date Status Levothyroxine Sodium 88 MCG TAKE 1 TABLE T BY MOUTH EVERY DAY IN THE MORNING ON EMPTY STOMACH for 90 Active Sertraline HCl 50 MG TAKE 1 TABLET BY [facility] EVERY DAY FOR 90 DAYS for 90 Active Omeprazole 20 MG TAKE 1 CAPSULE BY [facility] EVERY DAY 30 MINUTES BEFORE MORNING MEAL FOR 30 DAYS for 90 Active Immunizations Vaccine Route Administration Date Status Comme nts Fluarix Quadrivalent Unknown 12/06/2016 Administered [employer] TDaP IM Intramuscular 04/01/2017 Administered pt was given the vaccine at a minute clininc at [facility] on [address] PPSV23 (Pnemovax) IM Intramuscular 05/02/2017 Administered Fluarix Quadrivalent IM Intramuscular 11/03/2017 Administered Fluarix Quadrivalent IM Intramuscular 10/26/2018 Administered Given at [facility] Fluarix Quadrivalent Unknown 11/08/2019 Administered SARS-COV-2 Pfizer Unknown 04/08/2020 Administered SARS-COV-2 Pfizer Unknown 04/29/2020 Administered Fluarix Quadrivalent Unknown 11/14/2020 Administered Fluarix Quadrivalent Unknown 11/19/2021 [facility]ered [facility] Shingrix Unknown 04/21/2022 [facility]ered [facility] Social History Tobacco Use: Social History Observation Description Date Details (start date - stop date) Never Smoker NA - NA Tobacco Use/Smoking Question Answer Notes Patient is a nonsmoker Additional Findings: Tobacco Non-User Cu rrent non-smoker, currently using no form of tobacco Alcohol Screen Question Answer Notes Did you have a drink contain ing alcohol in the past year? Yes How often did you have a dri nk containing alcohol in the past year? Monthly or less (1 point) How many drinks did you have on a typical day when you were drinking in the past year? 1 or 2 drinks (0 point) How often did you have 6 or more drinks on one occasion in the past year? Never (0 point) Points 1 Interpretation Negative Problems Problem Type SNOMED Code ICD Code Onset Dates Problem Status W/U Status Risk Notes Problem 13556495 Anxiety (F41.9) Active confirmed Problem 295338076 Diverticulitis (K57.92) Active confirmed Problem 101346697 Family history o f colonic polyps (Z83.71) Active confirmed Problem 441127404 Gastroesophageal reflux disease without esophagitis (K21.9) Active confirmed Problem 435706126 Acquired hypothyroidism (E03.9) Active confirmed Problem 0469140 SVT (supraventri cular tachycardia) (I47.1) Active confirmed Problem 40016463 Hypercholesterem ia (E78.00) Active confirmed Problem 06368176 Extrasystole (I49.49) Active confirmed Vital Signs Blood pressure diastolic 70 mm Hg 09/11/2023 Height 65.5 in 09/11/2023 Blood pressure systolic 144 mm Hg 09/11/2023 Weight 173 lbs 09/11/2023 BMI 28.35 kg/m2 09/11/2023 Encounters Encounter Location Date Provider Diagnosis Rickey Real MD [address] [place] [id number] 04/21/2023 Rickey Real Acquired hypothyroid ism E03.9 Rickey Real MD [address] [place] [address] Drive [address] [place] [id number] 04/20/2024 Rickey Real Acquired hypothyroid ism E03.9 ; Blood tests for routine general physical examination Z00.00 and Hypercholesteremia E78.00 Rickey Real MD [address] [place] [id number] 04/24/2023 Rickey Real Acquired hypothyroid ism E03.9 ; Annual physical exam Z00.00 and Hypercholesteremia E78.00 Rickey Real MD [address] [place] [id number] 08/12/2023 Rickey Real Palpitations R00.2 a nd Gastroesophageal reflux disease without esophagitis K21.9 Rickey Real MD [address] [place] [id number] 09/11/2023 Rickey Real Gastroesophageal ref lux disease without esophagitis K21.9 Assessments Encounter Date Diagnosis (ICD Code) Assessment Notes Treatment Notes Treatment Clinical Notes Section Notes 04/21/2023 Acquired hypothyroidism (ICD-10 - E03.9) 04/20/2024 Acquired hypothyroidism (ICD-10 - E03.9) 04/20/2024 Blood tests for routine general physical examination (ICD-10 - Z00.00) 04/24/2023 Acquired hypothyroidism (ICD-10 - E03.9) tsh in range 04/24/2023 Annual physical exam (ICD-10 - Z00.00) labs reviewed and discussed with pt 08/12/2023 Palpitations (ICD-10 - R00.2) sounds as though not the same as her palpitations 08/12/2023 Gastroesophageal reflux disease without esophagitis (ICD-10 - K21.9) possibly related to some spasm in esophagus 09/11/2023 Gastroesophageal reflux disease without esophagitis (ICD-10 - K21.9) doing great. will get upper endoscopy when she gets colonoscopy 04/20/2024 Hypercholesteremia (ICD-10 - E78.00) 04/24/2023 Hypercholesteremia (ICD-10 - E78.00) patient has watched diet and got her ldl down 20 points. will continue with exercise and diet Plan Of Treatment Pending Test Test Name Order Date Electrocardiogram (EKG) 05/02/2017 Electrocardiogram (EKG) 05/22/2018 Electrocardiogram (EKG) 09/14/2018 CT ABD & PELVIS WITH CONTRAST 04/03/2021 BONE DENSITY DEXA 01/24/2020 Cardiac Event Monitor 11/23/2021 Complete Blood Count Auto Diff 5 Comprehensive [facility]. Panel Fast 5 Lipid Panel 04/20/2024 TSH reflex Free T4 04/20/2024 Hold Gold 04/20/2024 XR DEXA axial skeleton 04/03/2021 UA ClnCatch+Micro w/rflx Cult 04/20/2024 Next Appt Details Provider Name:Rickey burton, 04/29/2024 08:30:00 AM, [address] [place] [address], [address], [place], [place], [phone], Insurance Providers Payer Name Payer Address Payer Phone Subscriber Number Group Number Insured Name Patient Relationship to Insured Coverage Start Date Coverage End Date [facility] [address] [facility] [address] [place] [address] [phone] [id number] Annia Hilda Self - patient is the insured Medical (General) History Medical History History ICD Code Colonoscopy done 2009 & 11/[address] Jefferson - repeat 5 years; colonoscopy done w/Dr. Jefferson - repeat 5 years Dysthymia F34.1
--- OUTSIDE RECORDS SUMMARY | 2024-04-20 12:00 | XMS_ITS | Encounter Summary ---
Author Organization [facility] Address [address] [place] [address] Care Team Providers Care Linux Admin Name Role Phone Ly Calderón MD Primary Care Provider [phone] Encounter Details Date Type Department Care Team (Late st Contact Info) Description 06/19/2022 Lab Requisition [facility] Main Lab [address] [place] [address] Lexie Barragan NP [address] [place], [place] [id number] Acute cystitis with hematuria Social History Tobacco Use Types Packs/Day Years Used Date Smoking Tobacco: Never Alcohol Use Standard Drinks/Week Comments No 0 (1 standard drink = 0.6 oz pur e alcohol) Comments Unknown Sex and Gender Information Value Date Recorded Sex Assigned at Not on file Legal Sex Female 2:10 AM EST Gender Identity Not on file Sexual Orientation Not on file documented as of this encounter Plan of Treatment Not on file documented as of this encounter Visit Diagnoses Diagnosis Acute cystitis with hematuria documented in this encounter Care Teams Linux Admin Relationship Specialty Start Date End Date Ly Calderón MD [address] [place] [address] PCP - General 11/08/05 documented as of this encounter
--- OUTSIDE RECORDS SUMMARY | 2024-04-20 12:00 | XMS_ITS ---
Author Organization Rickey Real MD Address [address] [place], [place] [id number] Care Team Providers Care Floor Sweeper Name Role Phone Rickey Real Primary Care Provider [phone] Results Component Value Reference Range Notes Complete Blood Count Auto Di ff (Not yet reviewed by provider) Interpretation: Performing Lab:[facility], [address] [place] [phone] Notes/Report: White Blood Count 4.7 4.8-10.8 X10*3/uL [...] NRBC Abs Auto 0.000 0.0-0.012 X10*3/uL Comprehensive [place]. Panel Fa (Not yet reviewed by provider) Interpretation: Performing Lab:[address] [phone] Notes/Report: Sodium 140 135-145 mmol/L Potassium 4.2 [...] yet reviewe d by provider) Interpretation: Performing Lab:[address] [phone] Notes/Report: Triglycerides 103 <150 mg/dL Desirable Triglyceride: [...] (Not yet reviewed by provider) Interpretation: Performing Lab:[facility], [address] [place] [phone] Notes/Report: TSH reflex Free T4 5.22 0.32-4.0 uIU/mL REASON FOR VISIT fasting yearly labs Encounters Encounter Location Date Provider Diagnosis Rickey Real MD [address] [place] [phone] 04/20/2024 Rickey Real Acquired hypothyroid ism E03.9 [...] Treatment Pending Test Test Name Order Date Complete Blood Count Auto Diff 5 Comprehensive [place]. Panel Fast 5 Lipid Panel 04/20/2024 TSH reflex Free T4 04/20/2024 UA ClnCatch+Micro w/rflx Cult 04/20/2024 Next Appt Details Provider Name:Rickey burton, 04/29/2024 08:30:00 AM, [address], [address], [place], [phone], Progress Notes * Hilda ARMSTRONG MDOB:[birth year] (64 yo F)Acc No.[id number]:04/20/2024 Progress Note Patient:?Hilda ARMSTRONG Provider:?Rickey Real MD :1960???Age:64 Y???Sex:Female D ate:04/20/2024 Address:[address], [id number] Subjective: * Chief Complaints: * ???1. Fasting yearly labs. * Medical History:? Objective: * Vitals:? Assessment: * Assessment: 1.?Blood tests for routine g eneral physical examination - Z00.00 (Primary)???2.?Acquired hypothyroidism - E03.9???3.?Hypercholesteremia - E78.00??? Plan: * Treatment: 2.?Acquired hypothyroidism?LAB: Complete Blood Count Auto Diff (Collection Date & Time - 04/20/2024 07:00 AM) ?LAB: Comprehensive [place]. Panel Fast (Collection Date & Time - 04/20/2024 07:00 AM) ?LAB: Lipid Panel (Collection Date & Time - 04/20/2024 07:00 AM) ?LAB: TSH reflex Free T4 (Collection Date & Time - 04/20/2024 07:00 AM) ?LAB: UA ClnCatch+Micro w/rflx Cult 3.?Hypercholesteremia?LAB: Complete Blood Count Auto Diff (Collection Date & Time - 04/20/2024 07:00 AM) ?LAB: Comprehensive [place]. Panel Fast (Collection Date & Time - 04/20/2024 07:00 AM) ?LAB: Lipid Panel (Collection Date & Time - 04/20/2024 07:00 AM) ?LAB: TSH reflex Free T4 (Collection Date & Time - 04/20/2024 07:00 AM) ?LAB: UA ClnCatch+Micro w/rflx Cult * Procedure Codes:?57316 VENIP UNCT, ROUTINE* * * The named appointment provid er may or may not be the originator of this progress note, and it is not deemed complete until electronically signed by the appointment provider. Sign off status: Pending * Provider:?Rickey Real MD Date:?0 04/20/2024 Generated for Maile bryan/Juan/Ricoitting on:?04/20/2024 11:59 AM EDT
[2024-04-20 12:26] LABS: Free T4 (Free Thyroxine) 1.29 ng/dL (0.71-1.85)
== END 2024-04-20 10:13 | disposition home or self-care (01) ==
LOC: HO.LNP 10:12
PROVIDERS: Visit Provider Internal Medicine
DX: Z00.00 Encounter for general adult medical examination without abnormal findings (principal); E03.9 Hypothyroidism, unspecified; E78.00 Pure hypercholesterolemia, unspecified
CPT/HCPCS: 80053; 80061; 84439; 84443; 85025

== ENCOUNTER 2024-04-29 10:37 | Outpatient (REF) | payer OTHER, SELFPAY ==
[2024-04-29 10:59] LABS: Appearance Urine Clear; Color Urine Yellow; Glucose Urine UA Negative (Negative); Leukocyte Esterase Urine Large (3+) (Negative); Nitrite Urine Negative (Negative); PH 6.5 (5.0-9.0); UMIC TRIGGER UACC YES; Urine Blood Negative (Negative); Urine Ketones Negative (Negative); Urine Protein Negative (Neg-Trace)
[2024-04-29 11:14] LABS: Bacteria Urine None Seen (None Seen); Hyaline Casts Urine 0-2 /LPF (0-2); RBC Urine 0-2 /HPF (0-2); Squamous Epithelial Cell Urine 0-2 /HPF (0-2); UACC Culture Trigger YES; WBC Urine 0-5 /HPF (0-5)
== END 2024-04-29 10:38 | disposition home or self-care (01) ==
LOC: HO.LNP 10:37
PROVIDERS: Visit Provider Internal Medicine
DX: Z00.00 Encounter for general adult medical examination without abnormal findings (principal); E78.00 Pure hypercholesterolemia, unspecified
CPT/HCPCS: 81001; 87086

== ENCOUNTER 2024-07-19 10:19 | Outpatient (REF) | payer OTHER, SELFPAY ==
[2024-07-19 10:44] LABS: Cholesterol 226 mg/dL (<200); HDL Cholesterol 48 mg/dL (>40); LDL Cholesterol Calculated 151 mg/dL (<100); Triglycerides 135 mg/dL (<150)
[2024-07-19 10:58] LABS: TSH reflex Free T4 1.08 uIU/mL (0.32-4.0)
--- OUTSIDE RECORDS SUMMARY | 2024-07-19 11:28 | XMS_ITS | Clinical Summary ---
Author Organization [facility] Address [address] [place] [address] Phone Care Team Providers Care Electronic Development Technician Name Role Phone Ly Calderón MD Primary Care Provider [phone] Allergies No known active allergies Medications amoxicillin [...] Vaccines (1 of 2) 01/15/2010 COVID-19 Vaccine ( - 2023-2 5 season) 2023 Colorectal Cancer Screening: Colonoscopy 02/10/2024 Depression Screening 02/10/2024 HIV Screening 02/10/2024 Hepatitis C Screening 02/10/2024 Social Influencers of Health Screening 02/10/2024 Influenza Vaccine (Season Ended) 2024 RSV Immunization Adult Patie nts (1 - 1-dose 75+ series) 01/15/2035 HIB [...] age to complete this topic Meningococcal B Vaccine Aged Out No l onger eligible based on patient's age to complete [...] age to complete this topic Care Teams Electronic Development Technician Relationship Specialty Start Date End Date Ly Calderón MD [address] [place] [id number] PCP - General 11/08/05
== END 2024-07-19 10:20 | disposition home or self-care (01) ==
LOC: HO.LNP 10:19
PROVIDERS: Visit Provider Internal Medicine
DX: E78.00 Pure hypercholesterolemia, unspecified (principal); I49.49 Other premature depolarization
CPT/HCPCS: 80061; 84443

== ENCOUNTER 2024-10-26 11:05 | Outpatient (REF) | payer OTHER, SELFPAY ==
--- OUTSIDE RECORDS SUMMARY | 2024-04-20 03:00 | XMS_ITS ---
Author Organization Rickey Real MD Address [address] [place], [place] [id number] Care Team Providers Care Arts Administrator Or Manager Name Role Phone Rickey Real Primary Care Provider Results Component Value Reference Range Notes Complete Blood Count Auto Di ff Reviewed date:04/20/2024 12:20:07 PM Interpretation: Performing Lab:[facility], [address] [place] [phone] Notes/Report: White Blood Count 4.7 4.8-10.8 X10*3/uL Red Blood Count 4.70 4.20-5.50 X10*6/uL Hemoglobin 14.0 12.0-16.0 g/dl Hematocrit 42.3 37.0-47.0 % Mean Corpuscular Volume 90.0 80.0-98.0 fL Mean Corpuscular Hemoglobin 29.8 27.0-33.0 pg Mean Corpuscular HGB Conc 33.1 31.0-35.0 g/dl Red Cell Distribution Width 12.7 11.0-16.0 % Platelet Count 284 160-400 X10*3/uL Mean Platelet Volume 10.4 9.4-12.3 fL Neutrophils Percent Auto 56.3 45-73 % Imm Gran Pct Auto 0.2 0.0-0.4 % Lymphocytes Percent Auto 33.8 20-40 % Monocytes Percent Auto 5.9 2-11 % Eosinophils Percent Auto 3.6 0-4 % Basophils Percent Auto 0.2 0-2 % NRBC Pct Auto 0.0 0.0-0.2 /100WBC Neutrophils Absolute Auto 2.7 2.0-8.3 x10*3/u L Imm Gran Abs Auto 0.01 0.00-0.03 X10*3/uL Lymphocytes Absolute Auto 1.6 1.2-4.9 X10*3/u L Monocytes Absolute Auto 0.3 0.1-1.2 X10*3/uL Eosinophils Absolute Auto 0.2 0.0-0.4 X10*3/u L Basophils Absolute Auto 0.0 0.0-0.2 X10*3/uL NRBC Abs Auto 0.000 0.0-0.012 X10*3/uL Comprehensive [place]. Panel Fa st Reviewed date:04/20/2024 12:38:52 PM Interpretation: Performing Lab:[facility], [address] [place] [phone] Notes/Report: Sodium 140 135-145 mmol/L Potassium 4.2 3.3-5.1 mmol/L Chloride 107 96-108 mmol/L Carbon Dioxide 28 22-29 mmol/L Anion Gap 9 12-20 Blood Urea Nitrogen 11 9-16 mg/dL Creatinine 0.85 0.5-1.4 mg/dL Estimated Glomerular Filt Rate > 60 Chronic Kidney Disease: Estimated GFR < 60 mL/min/1.73m2 Severe Kidney Disease: Estimated GFR < 15 mL/min/1.73m2 Glucose Fasting 86 60-99 mg/dL Calcium 8.9 8.4-10.2 mg/dL Bilirubin Total 0.6 0.0-1.0 mg/dL Aspartate Amino Transferase 22 5-31 U/L Alanine Aminotransferase 18 0-31 U/L Total Protein 7.0 6.5-8.0 g/dL Albumin Level 4.0 3.5-5.0 g/dL Alkaline Phosphatase 69 39-117 U/L Lipid Panel Reviewed date:04/20/2024 12:32:45 PM Interpretation: Performing Lab:[facility], [address] [place] [phone] Notes/Report: Triglycerides 103 <150 mg/dL Desirable Triglyceride: less than 150 mg/dL Borderline High Triglyceride 150-199 mg/dL High Triglyceride: 200-499 mg/dL Very High Triglyceride: greater than or equal to 5OO mg/dL Cholesterol 218 <200 mg/dL Desirable Cholesterol: less than 200 mg/dL Borderline High Cholesterol: 200-239 mg/dL High Cholesterol: greater than 239 mg/dL LDL Cholesterol Calculated 151 <100 mg/dL Desirable LDL: less than 100 mg/dL Near Optimal/Above Optimal LDL: 110-129 mg/dL Borderline High LDL: 130-159 mg/dL High LDL: 160-189 mg/dL Very High LDL: greater than or equal to 190 mg/dL HDL Cholesterol 47 >40 mg/dL Desirable HDL: greater than 40 mg/dL Note: This HDL assay may give artificially low results in patients with liver disease. TSH reflex Free T4 Reviewed date:04/20/2024 12:36:16 PM Interpretation: Performing Lab:[facility], [address] [place] [phone] Notes/Report: TSH reflex Free T4 5.22 0.32-4.0 uIU/mL REASON FOR VISIT fasting yearly labs Encounters Encounter Location Date Provider Diagnosis Rickey Real MD [address] [place] [address] [place] [phone] 04/20/2024 Rickey Real Acquired hypothyroid ism E03.9 ; Blood tests for routine general physical examination Z00.00 and Hypercholesteremia E78.00 Assessments Encounter Date Diagnosis (ICD Code) Assessment Notes Treatment Notes Treatment Clinical Notes Section Notes 04/20/2024 Acquired hypothyroidism (ICD-10 - E03.9) 04/20/2024 Blood tests for routine general physical examination (ICD-10 - Z00.00) 04/20/2024 Hypercholesteremia (ICD-10 - E78.00) Plan Of Treatment Pending Test Test Name Order Date UA ClnCatch+Micro w/rflx Cult 04/20/2024 Next Appt Details Provider Name:Rickey burton, 11/02/2024 09:00:00 AM, [address], Suite [facility], [place], [place], [phone], Provider Name:Rickey Connelly ier, 04/28/2025 07:00:00 AM, [address], [address], [place], [phone], Provider Name:Rickey Connelly ier, 05/05/2025 08:30:00 AM, [address], [address], [place], [phone], Progress Notes * Hilda ARMSTRONG MDOB:[birth year] (64 yo F)Acc No.[id number]:04/20/2024 Progress Note Patient: Iman BLAS Hilda M Provider: Ana Real MD :1960 A ge:64 Y S ex:Female Date:04/20/2024 Address[address] [id number] Subjective: * Chief Complaints: * 1 . Fasting yearly labs. * Medical History: Objective: * Vitals: Assessment: * Assessment: 1. B lood tests for routine general physical examination - Z00.00 (Primary) 2 .?Acquired hypothyroidism - E03.9 3 . H ypercholesteremia - E78.00 ? Plan: * Treatment: 2. A cquired hypothyroidism L AB: UA ClnCatch+Micro w/rflx Cult L AB: Complete Blood Count Auto Diff (Collection Date & Time - 04/20/2024 07:00 AM) L AB: Comprehensive [place]. Panel Fast (Collection Date & Time - 04/20/2024 07:00 AM) L AB: Lipid Panel (Collection Date & Time - 04/20/2024 07:00 AM) L AB: TSH reflex Free T4 (Collection Date & Time - 04/20/2024 07:00 AM) 3. H ypercholesteremia L AB: UA ClnCatch+Micro w/rflx Cult L AB: Complete Blood Count Auto Diff (Collection Date & Time - 04/20/2024 07:00 AM) L AB: Comprehensive [place]. Panel Fast (Collection Date & Time - 04/20/2024 07:00 AM) L AB: Lipid Panel (Collection Date & Time - 04/20/2024 07:00 AM) L AB: TSH reflex Free T4 (Collection Date & Time - 04/20/2024 07:00 AM) * Procedure Codes: 3 6415 VENIPUNCT, ROUTINE* * * The named appointment provid er may or may not be the originator of this progress note, and it is not deemed complete until electronically signed by the appointment provider. Sign off status: Pending * Provider: Ana Real MD Date: 0 04/20/2024 Generated for Maile bryan/Juan/Ricoitting on: 0 10/26/2024 03:08 PM EDT
--- OUTSIDE RECORDS SUMMARY | 2024-04-29 04:30 | XMS_ITS ---
Author Organization Rickey Real MD Address [address] [place], [place] [id number] Care Team Providers Care Valve Mechanic Name Role Phone Rickey Real Primary Care Provider Allergies Allergen (clinical drug ingredient) Drug/Non Drug Allergy documented on EMR Reaction Allergy Type Onset Date Status metronidazole Metronidazole N palpitations Drug Allergy Active Results Component Value Reference Range Notes UA ClnCatch+Micro w/rflx Cul t Reviewed date:04/29/2024 12:24:50 PM Interpretation: Performing Lab:[facility], [address] [place] [phone] Notes/Report: Urine, Clean Catch Color Urine Yellow Appearance Urine Clear PH 6.5 5.0-9.0 Glucose Urine UA Negative Negative mg/dL Urine Blood Negative Negative Specific [place] - Urine 1.010 1.005-1.025 Urine Protein Negative Neg-Trace mg/dL Urine Ketones Negative Negative mg/dL Nitrite Urine Negative Negative Leukocyte Esterase Urine Large (3+) Negative RBC Urine 0-2 0-2 /HPF WBC Urine 0-5 0-5 /HPF Squamous Epithelial Cell Urine 0-2 0-2 /HPF Bacteria Urine None Seen None Seen Hyaline Casts Urine 0-2 0-2 /LPF REASON FOR VISIT annual visit Medications Medication SIG (Take, Route, Frequency, Duration) Notes Start Date End Date Status Sertraline HCl 50 MG TAKE 1 TABLET BY [facility] EVERY DAY FOR 90 DAYS for 90 Active Omeprazole 20 MG TAKE 1 CAPSULE BY MOUTH EVERY DAY 30 MINUTES BEFORE MORNING MEAL FOR 30 DAYS for 90 Not-Taking Propranolol HCl 10 MG 1 tablet on an emp ty stomach Orally every 12 hrs Active Levothyroxine Sodium 100 MCG 1 tablet in the morning on an empty stomach Orally Once a day for 90 days 04/29/2024 Active Levothyroxine Sodium 88 MCG TAKE 1 TABLET BY MOUTH EVERY DAY IN THE MORNING ON EMPTY STOMACH for 90 Active Social History Tobacco Use: Social History Observation [...] Never (0 point) Points 1 Interpretation Negative Vital Signs Blood pressure systolic 142 mm Hg 04/30/19 25 Blood pressure diastolic 90 mm Hg 025 Height 65.5 in 04/29/2024 Weight 176 lbs 04/29/2024 BMI 28.84 kg/m2 04/29/2024 weight is up 3 pounds since 09-11-23 Encounters Encounter Location Date Provider Diagnosis Rickey Real MD [address] [place] [address] [place] [phone] 04/29/2024 Rickey Real Annual physical exam Z00.00 ; Hypercholesteremia E78.00 ; Acquired hypothyroidism E03.9 ; Extrasystole I49.49 ; Gastroesophageal reflux disease without esophagitis K21.9 and Depression screening Z13.31 Assessments Encounter Date Diagnosis (ICD Code) Assessment Notes Treatment Notes Treatment Clinical Notes Section Notes 04/29/2024 Annual physical exam (ICD-10 - Z00.00) labs reviewed and discussed with patient 04/29/2024 Hypercholesteremia (ICD-10 - E78.00) stable, will continue current regiment and will continue to monitor 04/29/2024 Acquired hypothyroidism (ICD-10 - E03.9) patient verbalized understanding of medication and directins for use 04/29/2024 Extrasystole (ICD-10 - I49.49) need notes from dr angulo cardiology 04/29/2024 Gastroesophageal reflux disease without esophagitis (ICD-10 - K21.9) stable, will continue current regiment 04/29/2024 Depression screening (ICD-10 - Z13.31) negative screen Plan Of Treatment Medication Medication Name Sig Start Date Stop Date Notes Levothyroxine Sodium 100 MCG 1 tablet in the morning on an empty stomach Orally Once a day for 90 days 04/29/2024 Treatment Notes Assessment Notes Annual physical exam labs reviewed and d iscussed with patient Hypercholesteremia stable, will continu e current regiment and will continue to monitor Acquired hypothyroidism patient verbaliz ed understanding of medication and directins for use Extrasystole need notes from dr saima pollack cardiology Gastroesophageal reflux dise ase without esophagitis stable, will continue current regiment Depression screening negative screen Next Appt Details Follow Up: 3 Months, Reason: Provider Name:Rickey burton, 11/02/2024 09:00:00 AM, [address] [place] [address], [address], [phone], Provider Name:Rickey burton, 04/28/2025 07:00:00 AM, [address] [place] [address], [address], [phone], Provider Name:Rickey burton, 05/05/2025 08:30:00 AM, [address] [place] [address], [address], [phone], Progress Notes * Hilda ARMSTRONG MDOB:[birth year] (64 yo F)Acc No.[id number]:04/29/2024 Progress Notes Patient: Hilda CUTLER Provider: Ana Real MD :1960 A ge:64 Y S ex:Female Date:04/29/2024 Address: [address] [place], [id number] Subjective: * Chief Complaints: * A nnual visit * HPI: D epression Screening: PHQ-9 L ittle interest or pleasure in doing things N ot at all, F eeling down, depressed, or hopeless N ot at all, T rouble falling or staying asleep, or sleeping too much N ot at all, F eeling tired or having little energy N ot at all, P oor appetite or overeating N ot at all, F eeling bad about yourself or that you are a failure, or have let yourself or your family down N ot at all, T rouble concentrating on things, such as reading the newspaper or watching television N ot at all, M oving or speaking so slowly that other people could have noticed; or the opposite, being so fidgety or restless that you have been moving around a lot more than usual N ot at all, T houghts that you would be better off or of hurting yourself in some way N ot at all, T otal Score 0 . I nterpretation and Intervention D epression Screening Findings N egative, F ollow-Up for Depression : review of PHQ-9 found negative result, no follow-up needed. C ommunication Needs: Communication Needs D oes the patient have a hearing impairment N o, D oes the patient have a vision impairment? Y es, I f yes, what is the vision impairment? G lasses, D oes the patient have a cognition impairment? N o. F all Risk: History H ave you had any falls with injury in the past year? N o, H ave you had two or more falls in the past year? N o. S NIKKI Questions: SDOH Questions I n the past year have you been worried about losing housing? N o, I n the past year have you or any family members you live with been unable to get any of the following when it was really needed? Check all that apply: N one. S ymptom(s): patient is a 64 yo female here for annual visit with review of recent labs and follow up of chronic issues.has been doing well. * ROS: G eneral/Constitutional: Change in appetite d enies. C hills d enies. F ever d enies. O phthalmologic: Blurred vision d enies. D ischarge d enies. P ain d enies. E NT: Decreased hearing d enies. S ore throat d enies.?Swollen glands d enies. E ndocrine: Cold intolerance d enies. E xcessive thirst d enies. H eat intolerance d enies. W eight loss d enies. R espiratory: Cough d enies. S hortness of breath at rest d enies. S hortness of breath with exertion d enies. W heezing d enies. C ardiovascular: Chest pain at rest d enies. C hest pain with exertion?denies. I rregular heartbeat d enies. S hortness of breath d enies. ? G astrointestinal: Abdominal pain d enies. C hange in bowel habits d enies. D iarrhea d enies. N ausea d enies. R ectal bleeding d enies. V omiting d enies . G enitourinary: Blood in urine d enies. D ifficulty urinating d enies. F requent urination d enies. U rinary incontinence D enies. M usculoskeletal: Painful joints d enies. W eakness d enies. ? S kin: Dry skin d enies. I tching d enies. D enies?Mole(s), changes in moles, new moles or any lesions of concern. D enies P hotosensitivity. R odilon d enies. N eurologic: Dizziness d enies. F ainting d enies. H eadache?denies. * Medical History: * Surgical History: * Hospitalization/Major Diagno stic Procedure: * Family History: F ather: 95 yrs. M other: 97 yrs, diagnosed with Hypertension. 1 son(s) , 1 daughter(s) . . Father- AFib Mother healthy, Denies mental health/substance abuse family history, No pertinent family medical history, Denies mental health/substance abuse family history, No pertinent family medical history. * Social History: T obacco Use: T obacco Use/Smoking P atient is a n Ruthie garcia dditional Findings: Tobacco Non-User C urrent non-smoker, currently using no form of tobacco. D rugs/Alcohol: A lcohol Screen D id you have a drink containing alcohol in the past year? Y es, H ow often did you have a drink containing alcohol in the past year? M onthly or less (1 point), H ow many drinks did you have on a typical day when you were drinking in the past year? 1 or 2 drinks (0 point), H ow often did you have 6 or more drinks on one occasion in the past year? N ever (0 point), P oints 1 , I nterpretation N egative. M iscellaneous: C hildren: yes. Exercise: yes, walks QOD for 1 hour. Home smoke detector use: yes. Housing: owning. Living with: spouse. Marital status: . Occupation: works full-time. Pets: none. Travel outside of the [place]: no. * Medications: T akingPropranolol HCl 10 MG Tablet 1 tablet on an empty stomach Orally every 12 hrs Levothyroxine Sodium 88 MCG Tablet TAKE 1 TABLET BY MOUTH EVERY DAY IN THE MORNING ON EMPTY STOMACH Sertraline HCl 50 MG Tablet TAKE 1 TABLET BY MOUTH EVERY DAY FOR 90 DAYS Taking Propranolol HCl 10 MG Tablet 1 tablet on an empty stomach Orally every 12 hrs Taking Levothyroxine Sodium 88 MCG Tablet TAKE 1 TABLET BY MOUTH EVERY DAY IN THE MORNING ON EMPTY STOMACH Taking Sertraline HCl 50 MG Tablet TAKE 1 TABLET BY MOUTH EVERY DAY FOR 90 DAYS Not-Taking/PRNOmeprazole 20 MG Capsule Delayed Release TAKE 1 CAPSULE BY MOUTH EVERY DAY 30 MINUTES BEFORE MORNING MEAL FOR 30 DAYS Medication List reviewed and reconciled with the patientNot-Taking/PRN Omeprazole 20 MG Capsule Delayed Release TAKE 1 CAPSULE BY MOUTH EVERY DAY 30 MINUTES BEFORE MORNING MEAL FOR 30 DAYS Medication List reviewed and reconciled with the patient * Allergies: M etronidazole: N palpitations Objective: * Vitals: H t: 65.5, Wt: 176, BMI:28.84, BP:142/90, Wt-k.83. weight is up 3 pounds since 09-11-23. * P ast Orders: L ab:Free T4 (Free Thyroxine) (Order Date - 04/20/2024) (Collection Date & Time - 04/20/2024 07:00 AM) Value Reference Range Free T4 (Free Thyroxine) 1.29 0.71-1.85 - ng/ dL L ab:Complete Blood Count Auto Diff (Order Date - 04/20/2024) (Collection Date & Time - 04/20/2024 07:00 AM) Value Reference Range White Blood Count 4.7 L 4.8-10.8 - X10*3/uL Red Blood Count 4.70 4.20-5.50 - X10*6/uL Hemoglobin 14.0 12.0-16.0 - g/dl Hematocrit 42.3 37.0-47.0 - % Mean Corpuscular Volume 90.0 80.0-98.0 - fL Mean Corpuscular Hemoglobin 29.8 27.0-33.0 - pg Mean Corpuscular HGB Conc 33.1 31.0-35.0 - g/ dl Red Cell Distribution Width 12.7 11.0-16.0 - % Platelet Count 284 160-400 - X10*3/uL Mean Platelet Volume 10.4 9.4-12.3 - fL Neutrophils Percent Auto 56.3 45-73 - % Imm Gran Pct Auto 0.2 0.0-0.4 - % Lymphocytes Percent Auto 33.8 20-40 - % Monocytes Percent Auto 5.9 2-11 - % Eosinophils Percent Auto 3.6 0-4 - % Basophils Percent Auto 0.2 0-2 - % NRBC Pct Auto 0.0 0.0-0.2 - /100WBC Neutrophils Absolute Auto 2.7 2.0-8.3 - x10* 3/uL Imm Gran Abs Auto 0.01 0.00-0.03 - X10*3/uL Lymphocytes Absolute Auto 1.6 1.2-4.9 - X10* 3/uL Monocytes Absolute Auto 0.3 0.1-1.2 - X10*3/ uL Eosinophils Absolute Auto 0.2 0.0-0.4 - X10* 3/uL Basophils Absolute Auto 0.0 0.0-0.2 - X10*3/ uL NRBC Abs Auto 0.000 0.0-0.012 - X10*3/uL L ab:Comprehensive [place]. Panel Fast (Order Date - 04/20/2024) (Collection Date & Time - 04/20/2024 07:00 AM) Value Reference Range Sodium 140 135-145 - mmol/L Bilirubin Total 0.6 0.0-1.0 - mg/dL Aspartate Amino Transferase 22 5-31 - U/L Alanine Aminotransferase 18 0-31 - U/L Total Protein 7.0 6.5-8.0 - g/dL Albumin Level 4.0 3.5-5.0 - g/dL Alkaline Phosphatase 69 39-117 - U/L Potassium 4.2 3.3-5.1 - mmol/L Chloride 107 96-108 - mmol/L Carbon Dioxide 28 22-29 - mmol/L Anion Gap 9 L 12-20 - Blood Urea Nitrogen 11 9-16 - mg/dL Creatinine 0.85 0.5-1.4 - mg/dL Estimated Glomerular Filt Rate > 60 - Glucose Fasting 86 60-99 - mg/dL Calcium 8.9 8.4-10.2 - mg/dL L ab:Lipid Panel (Order Date - 04/20/2024) (Collection Date & Time - 04/20/2024 07:00 AM) Value Reference Range Triglycerides 103 <150 - mg/dL Cholesterol 218 H <200 - mg/dL LDL Cholesterol Calculated 151 H <100 - mg/dL HDL Cholesterol 47 >40 - mg/dL L ab:TSH reflex Free T4 (Order Date - 04/20/2024) (Collection Date & Time - 04/20/2024 07:00 AM) Value Reference Range TSH reflex Free T4 5.22 H 0.32-4.0 - uIU/mL * Examination: G eneral Examination: GENERAL APPEARANCE: w ell developed, well nourished, in no acute distress. HEAD: n ormocephalic, atraumatic. EYES: p upils equal, round, reactive to light and accommodation, sclera non-icteric. EARS: n ormal. ORAL CAVITY: m ucosa moist. THROAT: c lear. NECK/THYROID: n antonio supple, full range of motion, no cervical lymphadenopathy, no bruits. SKIN: w arm and dry, no suspicious lesions. HEART: r egular rate and rhythm, S1, S2 normal, no murmurs.? LUNGS: c lear to auscultation bilaterally. BREASTS: d one by communications supervisor. ABDOMEN: s oft, nontender, nondistended, bowel sounds present, normal, no organomegaly , no masses palpable. RECTAL EXAM: d one by communications supervisor. FEMALE GENITOURINARY: d one by communications supervisor. EXTREMITIES: n o clubbing, cyanosis, or edema. NEUROLOGIC: n onfocal, motor strength normal upper and lower extremities, sensory exam intact. Assessment: * Assessment: 1. A nnual physical exam - Z00.00 (Primary) 2 . H ypercholesteremia - E78.00 3 . A cquired hypothyroidism - E03.9 4 . E xtrasystole - I49.49 5 . G astroesophageal reflux disease without esophagitis - K21.9 ? 6 . D epression screening - Z13.31 Plan: * Treatment: 2. H ypercholesteremia L AB: UA ClnCatch+Micro w/rflx Cult (Collection Date & Time - 04/29/2024 08:30 AM) L AB: Lipid Panel (Ordered for 07/30/2024) Notes: stable, will continue current regiment and will continue to monitor 3. A cquired hypothyroidism Start Levothyroxine Sodium Tablet, 100 MCG, 1 tablet in the morning on an empty stomach, Orally, Once a day, 90 days, 90 Tablet, Refills 3. Notes: patient verbalized understanding of medication and directins for use 4. E xtrasystole L AB: TSH reflex Free T4 (Ordered for 07/30/2024) Notes: need notes from dr angulo cardiology 5. G astroesophageal reflux disease without esophagitis Notes: stable, will continue current regiment 6. D epression screening Notes: negative screen * Procedure Codes: * Follow Up: 3 Months * * Sign off status: Completed true * Provider: Ana Real MD Date: 0 04/29/2024 Generated for Maile bryan/Juan/Ricoitting on: 0 10/26/2024 03:08 PM EDT History and Physical Notes * HPI (History of Present Illness) Category Sub-Category Detail Notes Category Not es Symptom(s) patient is a 64 yo female here for annual visit with review of recent labs and follow up of chronic issues.has been doing well Depression Screening PHQ-9 Little inte rest or pleasure in doing things: Not at all Feeling down, depressed, or hopeless: No t at all Trouble falling or staying asleep, or sl eeping too much: Not at all Feeling tired or having little energy: N ot at all Poor appetite or overeating: Not at all Feeling bad about yourself o r that you are a failure, or have let yourself or your family down: Not at all Trouble concentrating on thi ngs, such as reading the newspaper or watching television: Not at all Moving or speaking so slowly that other people could have noticed; or the opposite, being so fidgety or restless that you have been moving around a lot more than usual: Not at all Thoughts that you would be b allie off or of hurting yourself in some way: Not at all Total Score: 0 Interpretation and Intervention Depression Trevor minor Findings: Negative Follow-Up for Depression: : review of PH Q-9 found negative result, no follow-up needed SDOH Questions SDOH Questions In the past year have you been worried about losing housing?: No In the past year have you or any family members you live with been unable to get any of the following when it was really needed? Check all that apply:: None Fall Risk History Have you had any falls with injury i n the past year?: No Have you had two or more falls in the st year?: No Communication Needs Communication Needs Does the patient have a hearing impairment: No Does the patient have a vision impairmen t?: Yes If yes, what is the vision impairment?: Glasses Does the patient have a cognition impair ment?: No Examination Category Sub-Category Detail Notes Category Not es General Examination GENERAL APPEARANCE: well dev eloped, well nourished, in no acute distress HEAD: normocephalic, atrau matic EYES: pupils equal, round, reactive to light and accommodation, sclera non-icteric EARS: normal THROAT: clear NECK/THYROID: neck supple, full ra nge of motion, no cervical lymphadenopathy, no bruits HEART: regular rate and rhy thm, S1, S2 normal, no murmurs LUNGS: clear to auscultatio n bilaterally ABDOMEN: soft, nontender, non distended, bowel sounds present, normal, no organomegaly , no masses palpable NEUROLOGIC: nonfocal, motor stre ngth normal upper and lower extremities, sensory exam intact SKIN: warm and dry, no lavinia picious lesions EXTREMITIES: no clubbing, cyanosi s, or edema BREASTS: done by communications supervisor RECTAL EXAM: done by communications supervisor FEMALE GENITOURINARY: done by communications supervisor ORAL CAVITY: mucosa moist
--- OUTSIDE RECORDS SUMMARY | 2024-07-19 03:30 | XMS_ITS ---
Author Organization Rickey Real MD Address [address] [place], [place] [id number] Care Team Providers Care Bilingual Medical Assistant Name Role Phone Rickey Real Primary Care Provider [phone] Results Component Value Reference Range Notes Lipid Panel Reviewed date:07/19/2024 12:24:15 PM Interpretation: Performing Lab:[facility], [address] [place] [phone] Notes/Report: Triglycerides 135 <150 mg/dL Desirable Triglyceride: less than 150 mg/dL Borderline High Triglyceride 150-199 mg/dL High Triglyceride: 200-499 mg/dL Very High Triglyceride: greater than or equal to 5OO mg/dL Cholesterol 226 <200 mg/dL Desirable Cholesterol: less than 200 mg/dL Borderline High Cholesterol: 200-239 mg/dL High Cholesterol: greater than 239 mg/dL LDL Cholesterol Calculated 151 <100 mg/dL Desirable LDL: less than 100 mg/dL Near Optimal/Above Optimal LDL: 110-129 mg/dL Borderline High LDL: 130-159 mg/dL High LDL: 160-189 mg/dL Very High LDL: greater than or equal to 190 mg/dL HDL Cholesterol 48 >40 mg/dL Desirable HDL: greater than 40 mg/dL Note: This HDL assay may give artificially low results in patients with liver disease. TSH reflex Free T4 Reviewed date:07/19/2024 12:24:23 PM Interpretation: Performing Lab:[facility], [address] [place] [phone] Notes/Report: TSH reflex Free T4 1.08 0.32-4.0 uIU/mL REASON FOR VISIT TSH Encounters Encounter Location Date Provider Diagnosis Rickey Real MD [address] [place] [phone] 07/19/2024 Rickey Real Acquired hypothyroid ism E03.9 ; Annual physical exam Z00.00 ; Hypercholesteremia E78.00 and Extrasystole I49.49 Assessments Encounter Date Diagnosis (ICD Code) Assessment Notes Treatment Notes Treatment Clinical Notes Section Notes 07/19/2024 Acquired hypothyroidism (ICD-10 - E03.9) 07/19/2024 Annual physical exam (ICD-10 - Z00.00) 07/19/2024 Hypercholesteremia (ICD-10 - E78.00) 07/19/2024 Extrasystole (ICD-10 - I49.49) Plan Of Treatment Next Appt Details Provider Name:Rickey burton, 11/02/2024 09:00:00 AM, [address] [place] [address], [address], [phone], Provider Name:Rickey burton, 04/28/2025 07:00:00 AM, [address] [place] [address], [phone], Provider Name:Rickey burton, 05/05/2025 08:30:00 AM, [address] [place] [address], [phone], Progress Notes * Hilda ARMSTRONG MDOB:[birth year] (64 yo F)Acc No.[id number]:07/19/2024 Progress Note Patient: Iman ROOPA Hilda Patty Provider: Ana Real MD :1960 A ge:64 Y S ex:Female Date:07/19/2024 Address: [address] [place], [id number] Subjective: * Chief Complaints: * 1 . TSH. * Medical History: Objective: * Vitals: Assessment: * Assessment: 1. A cquired hypothyroidism - E03.9 (Primary) 2 . A nnual physical exam - Z00.00 3 . H ypercholesteremia - E78.00 4 . E xtrasystole - I49.49 Plan: * Treatment: 2. E xtrasystole L AB: TSH reflex Free T4 (Collection Date & Time - 07/19/2024 07:30 AM) * Procedure Codes: 3 6415 VENIPUNCT, ROUTINE* * * The named appointment provid er may or may not be the originator of this progress note, and it is not deemed complete until electronically signed by the appointment provider. Sign off status: Pending * Provider: Ana Real MD Date: 0 07/19/2024 Generated for Maile bryan/Juan/Ricoitting on: 0 10/26/2024 03:08 PM EDT
--- OUTSIDE RECORDS SUMMARY | 2024-07-26 05:15 | XMS_ITS ---
Author Organization Rickey Real MD Address [address] [place], [place] [phone] Care Team Providers Care Lining Finisher Name Role Phone Rickey Real Primary Care Provider [phone] Allergies Allergen (clinical drug ingredient) Drug/Non Drug Allergy documented on EMR Reaction Allergy Type Onset Date Status metronidazole Metronidazole N palpitations Drug Allergy Active REASON FOR VISIT 3 month, Patient has a new CHEMICAL SUPERVISOR Dr Gomez Medications Medication SIG (Take, Route, Frequency, Duration) Notes Start Date End Date Status Levothyroxine Sodium 88 MCG 1 tablet in the morning on an empty stomach Orally Once a day for 90 days 04/29/2024 Active Omeprazole 20 MG TAKE 1 CAPSULE BY MOUTH EVERY DAY 30 MINUTES BEFORE MORNING MEAL FOR 30 DAYS for 90 Not-Taking Sertraline HCl 50 MG TAKE 1 TABLET BY [facility] EVERY DAY FOR 90 DAYS for 90 Active Levothyroxine Sodium 88 MCG TAKE 1 TABLET BY MOUTH EVERY DAY IN THE MORNING ON EMPTY STOMACH for 90 Not-Taking Propranolol HCl 10 MG 1 tablet on an emp ty stomach Orally every 12 hrs Active Vital Signs Blood pressure systolic 142 mm Hg 07/27/19 25 Blood pressure diastolic 78 mm Hg 025 Height 65.5 in 07/26/2024 Weight 173 lbs 07/26/2024 BMI 28.35 kg/m2 07/26/2024 weight is down 3 pounds [facility] e 04-29-24 Encounters Encounter Location Date Provider Diagnosis Rickey Real MD [address] [place] [phone] 07/26/2024 Rickey Real Acquired hypothyroid ism E03.9 and Hypercholesteremia E78.00 Assessments Encounter Date Diagnosis (ICD Code) Assessment Notes Treatment Notes Treatment Clinical Notes Section Notes 07/26/2024 Acquired hypothyroidism (ICD-10 - E03.9) felt better on the lower dose even though her tsh was a little higher 07/26/2024 Hypercholesteremia (ICD-10 - E78.00) stable,is slightly elevated, will contnue current diet regiment, and will contnue to monitor Plan Of Treatment Medication Medication Name Sig Start Date Stop Date Notes Levothyroxine Sodium 88 MCG 1 tablet in the morning on an empty stomach Orally Once a day for 90 days 04/29/2024 Treatment Notes Assessment Notes Acquired hypothyroidism felt better on t he lower dose even though her tsh was a little higher Hypercholesteremia stable,is slightly e levated, will contnue current diet regiment, and will contnue to monitor Next Appt Details Follow Up: 3 Months, Reason: Provider Name:Rickey burton, 11/02/2024 09:00:00 AM, [address] [place] [address], [phone], Provider Name:Rickey burton, 04/28/2025 07:00:00 AM, [address] [place] [address], [phone], Provider Name:Rickey burton, 05/05/2025 08:30:00 AM, [address] [place] [address], [phone], Progress Notes * Hilda ARMSTRONG MDOB:[birth year] (64 yo F)Acc No.[id number]:07/26/2024 Progress Notes Patient: Hilda CUTLER Provider: Ana Real MD :1960 A ge:64 Y S ex:Female Date:07/26/2024 Address: [address], [place], [id number] Subjective: * Chief Complaints: * 3 monthPatient has a new CHEMICAL SUPERVISOR Dr Gomez * HPI: S ymptom(s): patient is a 64 yo female here for 3 month follow up visit/. * ROS: G eneral/Constitutional: Denies C hills. D enies F atigue. D enies F ever. D enies H eadache. E NT: Patient denies d ecreased sense of smell, any loss of taste, sore throat. D enies S ore throat. R espiratory: Denies C ough. D enies S hortness of breath at rest. D enies S hortness of breath with exertion. G astrointestinal: Denies D iarrhea. D enies N ausea. M usculoskeletal: Patient denies m uscle aches. P eripheral Vascular: Patient denies r ed and blue toes. * Medical History: * Surgical History: * Hospitalization/Major Diagno stic Procedure: * Medications: T akingPropranolol HCl 10 MG Tablet 1 tablet on an empty stomach Orally every 12 hrs Sertraline HCl 50 MG Tablet TAKE 1 TABLET BY MOUTH EVERY DAY FOR 90 DAYS Levothyroxine Sodium 100 MCG Tablet 1 tablet in the morning on an empty stomach Orally Once a day Taking Propranolol HCl 10 MG Tablet 1 tablet on an empty stomach Orally every 12 hrs Taking Sertraline HCl 50 MG Tablet TAKE 1 TABLET BY MOUTH EVERY DAY FOR 90 DAYS Taking Levothyroxine Sodium 100 MCG Tablet 1 tablet in the morning on an empty stomach Orally Once a day Not-Taking/PRNLevothyroxine Sodium 88 MCG Tablet TAKE 1 TABLET BY MOUTH EVERY DAY IN THE MORNING ON EMPTY STOMACH Omeprazole 20 MG Capsule Delayed Release TAKE 1 CAPSULE BY MOUTH EVERY DAY 30 MINUTES BEFORE MORNING MEAL FOR 30 DAYS Medication List reviewed and reconciled with the patientNot-Taking/PRN Levothyroxine Sodium 88 MCG Tablet TAKE 1 TABLET BY MOUTH EVERY DAY IN THE MORNING ON EMPTY STOMACH Not-Taking/PRN Omeprazole 20 MG Capsule Delayed Release TAKE 1 CAPSULE BY MOUTH EVERY DAY 30 MINUTES BEFORE MORNING MEAL FOR 30 DAYS Medication List reviewed and reconciled with the patient * Allergies: M etronidazole: N palpitationsyes[Allergies Verified] Objective: * Vitals: H t: 65.5, Wt: 173, BMI:28.35, BP:142/78, Wt-k.47. weight is down 3 pounds since 04-29-24. * P ast Orders: L ab:TSH reflex Free T4 (Order Date - 07/19/2024) (Collection Date & Time - 07/19/2024 07:30 AM) Value Reference Range TSH reflex Free T4 1.08 0.32-4.0 - uIU/mL L ab:Lipid Panel (Order Date - 07/19/2024) (Collection Date & Time - 07/19/2024 07:30 AM) Value Reference Range Triglycerides 135 <150 - mg/dL Cholesterol 226 H <200 - mg/dL LDL Cholesterol Calculated 151 H <100 - mg/dL HDL Cholesterol 48 >40 - mg/dL * Examination: G eneral Examination: GENERAL APPEARANCE: a lert, well hydrated, in no distress.? HEAD: n ormocephalic. SKIN: g ood turgor. HEART: r egular rate and rhythm, no murmurs, rubs, gallops.? LUNGS: n o wheezes, rales, rhonchi, good air movement, clear to auscultation bilaterally. Assessment: * Assessment: 1. A cquired hypothyroidism - E03.9 (Primary) 2 . H ypercholesteremia - E78.00 Plan: * Treatment: 2. H ypercholesteremia Notes: stable,is slightly elevated, will contnue current diet regiment, and will contnue to monitor? * Procedure Codes: * Follow Up: 3 Months * * Sign off status: Completed true * Provider: Ana Real MD Date: 07/26/2024 Generated for Maile bryan/Juan/Jeanine on: 10/26/2024 03:07 PM EDT History and Physical Notes * HPI (History of Present Illness) Category Sub-Category Detail Notes Category Not es Symptom(s) patient is a 64 yo female here for 3 month follow up visit/ Examination Category Sub-Category Detail Notes Category Not es General Examination GENERAL APPEARANCE: alert, w ell hydrated, in no distress HEAD: normocephalic HEART: regular rate and rhy thm, no murmurs, rubs, gallops LUNGS: no wheezes, rales, r honchi, good air movement, clear to auscultation bilaterally SKIN: good turgor
--- OUTSIDE RECORDS SUMMARY | 2024-10-26 03:45 | XMS_ITS ---
Author Organization Rickey Real MD Address [address] [place] [phone] Care Team Providers Care Car Porter Name Role Phone Rickey Real Primary Care Provider Results Component Value Reference Range Notes TSH reflex Free T4 Reviewed date:10/26/2024 12:04:48 PM Interpretation: Performing Lab:[facility], [address] [place] [phone] Notes/Report: TSH reflex Free T4 3.31 0.32-4.0 uIU/mL REASON FOR VISIT TSH Encounters Encounter Location Date Provider Diagnosis Rickey Real MD [address] [place] [phone] 10/26/2024 Rickey Real Acquired hypothyroidism E03.9 Assessments Encounter Date Diagnosis (ICD Code) Assessment Notes Treatment Notes Treatment Clinical Notes Section Notes 10/26/2024 Acquired hypothyroidism (ICD-10 - E03.9) Plan Of Treatment Next Appt Details Provider Name:Rickey burton, 11/02/2024 09:00:00 AM, [address] [facility], [address] [place] [address], [phone], Provider Name:Rickey Connelly ier, 04/28/2025 07:00:00 AM, [address], [address], [place], [phone], Provider Name:Rickey Connelly ier, 05/05/2025 08:30:00 AM, [address], [address], [place], [place], [phone], Progress Notes * Hilda ARMSTRONG MDOB:[birth year] (64 yo F)Acc No.[id number]:10/26/2024 Progress Note Patient: Hilda CUTLER Provider: Ana Real MD :1960 A ge:64 Y S ex:Female Date:10/26/2024 Address:[address] [place], [place] [phone] Subjective: * Chief Complaints: * 1 . TSH. * Medical History: Objective: * Vitals: Assessment: * Assessment: 1. A cquired hypothyroidism - E03.9 Plan: * Treatment: * Procedure Codes: 3 6415 VENIPUNCT, ROUTINE* * * The named appointment provid er may or may not be the originator of this progress note, and it is not deemed complete until electronically signed by the appointment provider. Sign off status: Pending * Provider: Ana Real MD Date: 10/26/2024 Generated for Maile bryan/Juan/eTjimenasmitting on: 10/26/2024 03:08 PM EDT
--- OUTSIDE RECORDS SUMMARY | 2024-10-26 15:07 | XMS_ITS | Clinical Summary ---
Author Organization [facility] Address [address] [place] [address] Phone Care Team Providers Care Director Camp Name Role Phone Rickey Real MD Primary Care Provider Allergies Active Allergy Reactions Criticality Noted Date Comments Metronidazole 08/20/2024 Medications amoxicillin (AMOXIL) 500 mg tablet 1 TABLET EVERY 8 HOURS 05/21/2006 Active sertraline (ZOLOFT) 50 mg tablet Take 1 tablet (50 mg total) by mouth 1 (one) time each day. 12/11/2023 Active levothyroxine (SYNTHROID, LEVOTHROID) 100 mcg tablet Take 1 tablet (100 mcg total) by mouth 1 (one) time each day before breakfast. 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, 2001 Encounters Date Type Department Care Team Description 08/20/2024 Telephone Gastroenterology - [address] [phone] Iesha Ricketts MD 08/18/2024 Telephone Gastroenterology - [address] [phone] Iesha Ricketts MD from Last 3 Months Medical History Medical History Date Comments Unspecified [...] 01/15/2010 Zoster Vaccines (1 of 2) 01/15/2010 Colorectal Cancer Screening: Colonoscopy 02/10/2024 HIV Screening 02/10/2024 Hepatitis C Screening 02/10/2024 Social Influencers of Health Screening 02/10/2024 Depression Screening 02/11/2024 COVID-19 Vaccine (1 - 2023-2 5 season) 2024 Influenza Vaccine (#1) 2024 RSV Immunization Adult Patie nts (1 [...] on patient's age to complete this topic Insurance [facility] [address] [place] [address] Care Teams Director Camp Relationship Specialty Start Date End Date Rickey Real MD [address] [place] [address] Drive [address] [place] [address] PCP - General Internal Medicine 08/18/24
--- OUTSIDE RECORDS SUMMARY | 2024-10-26 15:08 | XMS_ITS | Patient Health Record ---
Author Organization Rickey Real MD Address [address] [place], [place] [phone] Care Team Providers Care Caddy Name Role Phone Rickey Real Primary Care Provider Allergies Allergen (clinical drug ingredient) Drug/Non Drug Allergy documented on EMR Reaction Allergy Type Onset Date Status metronidazole Metronidazole N palpitations Drug Allergy Active Results Component Value Reference Range Notes Complete Blood Count Auto Di ff Reviewed date:04/20/2024 12:20:07 PM Interpretation: Performing Lab:[facility], [address] [place] [phone] Notes/Report: White Blood Count 4.7 4.8-10.8 X10*3/uL [...] NRBC Abs Auto 0.000 0.0-0.012 X10*3/uL Comprehensive Sutton. Panel Fa st Reviewed date:04/20/2024 12:38:52 PM Interpretation: Performing Lab:[facility], [address] [place] [phone] Notes/Report: Sodium 140 135-145 mmol/L Potassium 4.2 [...] Panel Reviewed date:04/20/2024 12:32:45 PM Interpretation: Performing Lab:[facility], [address] [place] [phone] Notes/Report: Triglycerides 103 <150 mg/dL Desirable Triglyceride: [...] T4 Reviewed date:04/20/2024 12:36:16 PM Interpretation: Performing Lab:[facility], [address] [place] [phone] Notes/Report: TSH reflex Free T4 5.22 0.32-4.0 uIU/mL Lipid Panel Reviewed date:07/19/2024 12:24:15 PM Interpretation: Performing Lab:[facility], [address] [place] [phone] Notes/Report: Triglycerides 135 <150 mg/dL Desirable Triglyceride: [...] T4 Reviewed date:07/19/2024 12:24:23 PM Interpretation: Performing Lab:[facility], [address] [place] [phone] Notes/Report: TSH reflex Free T4 1.08 0.32-4.0 uIU/mL TSH reflex Free T4 Reviewed date:10/26/2024 12:04:48 PM Interpretation: Performing Lab:[facility], [address] [place] [phone] Notes/Report: TSH reflex Free T4 3.31 0.32-4.0 uIU/mL UA ClnCatch+Micro w/rflx Cul t Reviewed date:04/29/2024 12:24:50 PM Interpretation: Performing Lab:[facility], [address] [place] [phone] Notes/Report: Urine, Clean Catch Color Urine Yellow Appearance Urine Clear PH 6.5 5.0-9.0 Glucose Urine UA Negative Negative mg/dL Urine Blood Negative Negative Specific Candor - Urine 1.010 1.005-1.025 Urine Protein Negative Neg-Trace mg/dL Urine Ketones Negative Negative mg/dL Nitrite Urine Negative Negative Leukocyte Esterase Urine Large (3+) Negative RBC Urine 0-2 0-2 /HPF WBC Urine 0-5 0-5 /HPF Squamous Epithelial Cell Urine 0-2 0-2 /HPF Bacteria Urine None Seen None Seen Hyaline Casts Urine 0-2 0-2 /LPF MM tomosynthesis screening B I Reviewed date:02/27/2024 06:02:17 PM Interpretation: Performing Lab: Notes/Report: [facility] [address] [place] [address] Mammography Report Signed Patient: Hilda Armstrong MR#: [id number] : 1960 Acct:[id number] Age/Sex: 64 / F ADM Date: 02/20/24 Loc: HO.MAMMO Attending Dr: Rickey Real MD Ordering Physician: Rickey Real MD Results: 1Ne gative Date of Service: 02/20/24 Follow Up: 1 Year From Orig inal Mammogram Procedure(s): MM tomosynthesis screening BI Accession Number(s): [id number] cc: Rickey Real MD EXAMINATION: MM SCREENING [...] in OV> 02/27/24 1157 DD/ 9 TD/TT: 02/20/24 0845 Project Manager: [place] [facility] [address] [place] [address] Mammography Report Signed Patient: Soraida Armstrong MR#: [id number] : 1960 Acct:[id number] Age/Sex: 64 / F ADM Date: 02/20/24 Loc: HO.MAMMO Attending Dr: Rickey Real MD Ordering Physician: Rickey Real MD Results: 1Ne gative Date of Service: 02/20/24 Follow Up: 1 Year From Orig inal Mammogram Procedure(s): MM tomosynthesis screening BI Accession Number(s): [id number] cc: Rickey Real MD EXAMINATION: MM SCREENING DIGITAL BREAST TOMOSYNTHESIS, BILATERAL CLINICAL INFORMATION: Screening. Asymptomatic. COMPARISON: Mammography: Compari son is made with available priors TECHNIQUE: Digital [...] mammography screening. 1 year F/U This examination pramod uld not preclude the clinical evaluation of a suspicious palpable abnormality. This patient's information was entered into a reminder system with a target due date for their next mammogram. Electronically prabhu d by: Georgie Hinds DO 02/27/2024 11:57 AM [facility] Dictated By: Georgie Hinds DO Signed By: <Electronically signed by Georgie Hinds DO in OV> 02/27/24 1157 DD/ 0830 TD/TT: 02/20/24 0845 Project Manager: Free T4 (Free Thyroxine) Reviewed date:04/20/2024 12:32:54 PM Interpretation: Performing Lab:[address] [phone] Notes/Report: Free T4 (Free Thyroxine) 1.29 0.71-1.85 ng/dL Sourav Liu Reviewed date:04/20/2024 12:12:54 PM Interpretation: Performing Lab:[address] [phone] Notes/Report: Sourav Liu See Note Specimen held untested for 24 hours; Call to request Chemistry testing. Urine Culture Reviewed date:04/30/2024 12:29:57 PM Interpretation: Performing Lab:[address] [phone] Notes/Report: Urine Culture Report Result Urine Culture 50,000 to 100,000 cfu/ml Urine Culture Mixed bacterial keshia a characteristic of Urine Culture urogenital contamination. Sourav Liu Reviewed date:07/19/2024 12:23:32 PM Interpretation: Performing Lab:[address], [place] [address] Notes/Report: Sourav Liu See Note Specimen held untested for 24 hours; Call to request Chemistry testing. Sourav Liu Reviewed date:10/26/2024 12:04:40 PM Interpretation: Performing Lab:[facility], [address] [place] [phone] Notes/Report: Sourav Liu See Note Specimen held untested for 24 hours; Call to request Chemistry testing. Reason For Referral Reason needs a Colonoscopy Diagnosis 1 Screening for colon cancer (Z12.11) Referral Organization Rickey Real MD Referring Provider First Name Rickey Referring Provider Last Name Farhan Referring Provider Speciality Internal M edicine Referred Provider SUNIL JEFFERSON Referred Provider Specialty Gastroentero logy General Notes Patito Brooks 0 08/16/2024 02:05:05 PM > info scanned [phone] Annette 08/20/2024 09:34:59 AM >was told to call back next, Patito Brooks 08/27/2024 03:16:43 PM > due for this in Nov, Patito Brooks 10/26/2024 01:23:08 PM > info faxed Referral Priority Routine Medications Medication SIG (Take, Route, Frequency, Duration) [...] HCl 50 MG TAKE 1 TABLET BY [facility] EVERY DAY FOR 90 DAYS for 90 Active Levothyroxine Sodium 88 MCG TAKE 1 TABLET BY MOUTH EVERY DAY IN THE MORNING ON EMPTY STOMACH for 90 Not-Taking Propranolol HCl 10 MG 1 tablet on an emp ty stomach Orally every 12 hrs Active Immunizations Vaccine Route Administration Date Status Comme nts Fluarix Quadrivalent Unknown 12/06/2016 Administered [employer] TDaP IM Intramuscular 04/01/2017 Administered pt was given the vaccine at a [facility] clin[facility] at [facility] on [address] PPSV23 (Pnemovax) IM Intramuscular 05/02/2017 Administered [...] Problem Status W/U Status Risk Notes Problem 80052257 Anxiety (F41.9) Active confirmed Problem 626893430 Diverticulitis (K57.92) Active confirmed Problem 184705404 Family history o f colonic polyps (Z83.71) Active confirmed Problem 098397730 Gastroesophageal reflux disease without esophagitis (K21.9) Active confirmed Problem 234187185 Acquired hypothyroidism (E03.9) Active confirmed Problem 8656258 SVT (supraventri cular tachycardia) (I47.1) Active confirmed Problem 94267290 Hypercholesterem ia (E78.00) Active confirmed Problem 79432828 Extrasystole (I49.49) Active confirmed Vital Signs Blood pressure diastolic 78 mm Hg 07/26/2024 corona ght is down 3 pounds since 04-29-24 Height 65.5 in 07/26/2024 weight is down 3 pounds since 04-29-24 Blood pressure systolic 142 mm Hg 07/26/2024 weig ht is down 3 pounds since 04-29-24 Weight 173 lbs 07/26/2024 weight is down 3 pounds since 04-29-24 BMI 28.35 kg/m2 07/26/2024 weight is down 3 pounds since 04-29-24 Encounters Encounter Location Date Provider Diagnosis Rickey Real MD [address] [place] [id number] 04/20/2024 Rickey Real Acquired hypothyroid ism E03.9 ; Blood tests for routine general physical examination Z00.00 and Hypercholesteremia E78.00 Rickey Real MD [address] [place] [id number] 07/19/2024 Rickey Real Acquired hypothyroid ism E03.9 ; Annual physical exam Z00.00 ; Hypercholesteremia E78.00 and Extrasystole I49.49 Rickey Real MD [address] [place] [id number] 10/26/2024 Rickey Real Acquired hypothyroid ism E03.9 Rickey Real MD [address] [place] [id number] 04/29/2024 Rickey Real Annual physical exam Z00.00 ; Hypercholesteremia E78.00 ; Acquired hypothyroidism E03.9 ; Extrasystole I49.49 ; Gastroesophageal reflux disease without esophagitis K21.9 and Depression screening Z13.31 Rickey Real MD [address] [place] [id number] 07/26/2024 Rickey Real Acquired hypothyroid ism E03.9 and Hypercholesteremia E78.00 Assessments Encounter Date Diagnosis (ICD Code) Assessment Notes Treatment Notes Treatment Clinical Notes Section Notes 04/20/2024 Acquired hypothyroidism (ICD-10 - E03.9) 04/20/2024 Blood tests for routine general physical examination (ICD-10 - Z00.00) 07/19/2024 Acquired hypothyroidism (ICD-10 - E03.9) 10/26/2024 Acquired hypothyroidism (ICD-10 - E03.9) 04/29/2024 Annual physical exam (ICD-10 - Z00.00) labs reviewed and discussed with patient 04/29/2024 Hypercholesteremia (ICD-10 - E78.00) stable, will continue current regiment and will continue to monitor 07/26/2024 Acquired hypothyroidism (ICD-10 - E03.9) felt better on the lower dose even though her tsh was a little higher 04/20/2024 Hypercholesteremia (ICD-10 - E78.00) 07/19/2024 Annual physical exam (ICD-10 - Z00.00) 04/29/2024 Acquired hypothyroidism (ICD-10 - E03.9) patient verbalized understanding of medication and directins for use 07/26/2024 Hypercholesteremia (ICD-10 - E78.00) stable,is slightly elevated, will contnue current diet regiment, and will contnue to monitor 07/19/2024 Hypercholesteremia (ICD-10 - E78.00) 04/29/2024 Extrasystole (ICD-10 - I49.49) need notes from dr angulo cardiology 07/19/2024 Extrasystole (ICD-10 - I49.49) 04/29/2024 Gastroesophageal reflux disease without esophagitis (ICD-10 - K21.9) stable, will continue current regiment 04/29/2024 Depression screening (ICD-10 - Z13.31) negative screen Plan Of Treatment Pending Test Test Name Order Date Electrocardiogram (EKG) 05/02/2017 Electrocardiogram (EKG) 05/22/2018 Electrocardiogram (EKG) 09/14/2018 CT ABD & PELVIS WITH CONTRAST 04/03/2021 BONE DENSITY DEXA 01/24/2020 Cardiac Event Monitor 11/23/2021 XR DEXA axial skeleton 04/03/2021 UA ClnCatch+Micro w/rflx Cult 04/20/2024 Next Appt Details Provider Name:Rickey burton, 11/02/2024 09:00:00 AM, [address] [place] [address], [address], [phone], Provider Name:Rickey burton, 04/28/2025 07:00:00 AM, [address] [place] [address], [place] [address], [place], [place], [phone], Provider Name:Rickey burton, 05/05/2025 08:30:00 AM, [address] [place] [address], [address] [place] [address], [phone], Insurance Providers Payer Name Payer Address Payer Phone Subscriber Number Group Number Insured Name Patient Relationship to Insured Coverage Start Date Coverage End Date [facility] [address] [facility] [address] [place] [phone] [id number] Hilda Armstrong Self - patient is the insured Medical (General) History Medical History History ICD Code Colonoscopy done 2009 & 11/[address] Jefferson - repeat 5 years; colonoscopy done w/Dr. Jefferson - repeat 5 years getting colonoscopy 07/2024 Dysthymia F34.1
--- OUTSIDE RECORDS SUMMARY | 2024-10-26 15:09 | XMS_ITS | Encounter Summary ---
Author Organization [facility] Address [address] [place] [address] Care Team Providers Care Bulk Mail Clerk Name Role Phone Rickey Real MD Primary Care Provider Encounter Details Date Type Department Care Team (Late st Contact Info) Description 06/19/2022 Lab Requisition [facility] [address] [place] [address] Lexie Barragan, LIZZIE [address] [place] [address] Acute cystitis with hematuria Social History Tobacco [...] hematuria documented in this encounter Care Teams Bulk Mail Clerk Relationship Specialty Start Date End Date Rickey Real MD [address] [place] [address] Drive [address] [place] [address] PCP - General Internal Medicine 08/18/24 documented as of this encounter
== END 2024-10-26 11:06 | disposition home or self-care (01) ==
LOC: HO.LNP 11:05
PROVIDERS: Visit Provider Internal Medicine
DX: E03.9 Hypothyroidism, unspecified (principal)
CPT/HCPCS: 84443